=== PATIENT | female | born 1970 | race Caucasian/White ===

== ENCOUNTER → 2018-05-10 09:39 | Outpatient (CLI) | payer BC, SELFPAY ==
--- NOTE | 2018-05-10 09:43 | US_ITS ---
US transvaginal HISTORY: ITS.REASON: pelvic pain left-sided ORDERING PHYSICIAN: George Elias MD PATIENT AGE: 48 years Comparison: None FINDINGS: UTERUS: The uterus measures 5.7 x 3.8 x 5.2 cm. And is retroflexed. There is homogeneous echogenicity of the uterus.. Combined endometrial thickness is Endometrial thickness. Is 0.91 cm. RIGHT OVARY: Measures 2.6 x 1.2 x 2.4 cm with a small follicular cyst measuring 1.2 x 1.1 cm. LEFT OVARY: Measures 4.6 x 2.7 x 1.5 cm with a small follicular cysts measuring 1.2 x 1.4 x 1.1 cm. CUL-DE-SAC FLUID: No cul-de-sac fluid apparent OTHER FINDINGS: None IMPRESSION: Retroflexed uterus, small follicular cyst in each ovary is noted
--- NOTE | 2018-05-10 09:43 | MM_ITS ---
MM Dig screening mamm BI w/CAD CAD Screening ORDERING PHYSICIAN : George Elias MD PATIENT AGE: 48 years GENDER: Female COMPARISON: Previous mammograms: September 2012, February 2014, August 2011 INDICATION: 48-year-old. No hormones. No new complaints. Noncontributory family history. TECHNIQUE: Standard CC and MLO images were obtained. R2 CAD reviewed. FINDINGS: Moderately dense breast bilaterally which does somewhat decrease sensitivity mammography. No dominant mass nor suspicious calcifications either breast. Prior films show similar parenchymal pattern bilaterally with overall stable appearance. But stable Mild asymmetry CAD computer review highlights no specific areas of concern Bilateral follow-up in one year adequate . IMPRESSION: Stable bilateral mammogram with no significant new findings. Bilateral follow-up one year recommended BI-RADS Category: 2 Benign Finding(s) RECOMMENDED FOLLOW-UP: 1YR 1 YEAR FOLLOW-UP (A letter has been sent to the patient regarding results of the study.)
== END ==
PROVIDERS: Family Provider Family Medicine; PCP Family Medicine; Visit Provider Obstetrics & Gynecology
DX: Z12.31 Encounter for screening mammogram for malignant neoplasm of breast (principal); R10.2 Pelvic and perineal pain
CPT/HCPCS: 76830; 77067

== ENCOUNTER → 2019-03-07 10:39 | Outpatient (CLI) | payer BC, SELFPAY ==
[2019-03-07 11:43] LABS: Basophils % 0.5 % (0.1-2.0); Eosinophils # 0.4 K/mm3 (0.0-0.4); Eosinophils % 4.4 % (0.1-12.0); Hematocrit 43.2 % (37.0-47.0); Hemoglobin 14.3 g/dL (12.2-16.2); Lymphocytes # 2.7 K/mm3 (0.7-4.5); Lymphocytes % 30.9 % (10-50); Mean Corpuscular HGB Conc 33.2 g/dL (31.8-35.4); Mean Corpuscular Hemoglobin 30.6 pg (27.0-31.2); Mean Corpuscular Volume 92.3 fl (81-99); Mean Platelet Volume 7.2 fl (7.4-10.4); Monocytes # 0.4 K/mm3 (0.1-1.0); Monocytes % 4.4 % (1.7-9.3); Neutrophils # 5.2 K/mm3 (1.8-7.8); Neutrophils % 59.8 % (37.0-80.0); Platelet Count 350 K/mm3 (142-424); Red Blood Count 4.68 M/mm3 (4.20-5.40); Red Cell Distribution Width 13.2 % (11.5-17.5); White Blood Count 8.7 K/mm3 (4.8-10.8)
[2019-03-07 13:35] LABS: Alanine Aminotransferase 20 U/L (12-78); Albumin Level 3.8 gm/dL (3.4-5.0); Albumin/Globulin Ratio 1.1 (1.1-1.8); Alkaline Phosphatase 86 U/L (46-116); Anion Gap 12.4 mEq/L (5-15); Aspartate Amino Transferase 11 U/L (15-37); Bilirubin,Total 0.3 mg/dL (0.2-1.0); Blood Urea Nitrogen 10 mg/dL (7-18); Calcium 9.3 mg/dL (8.5-10.1); Carbon Dioxide 28 mmol/L (21.0-32.0); Chloride 103 mmol/L (98-107); Creatinine,Serum 0.84 mg/dL (0.55-1.02); Estimated Glomerular Filt Rate 72 ml/min (>60); GFR (African American) 88 ML/MIN (>60); Globulin 3.6 gm/dl (1.3-3.2); Glucose 79 mg/dL (74-106); Potassium 4.4 mmoL/L (3.5-5.1); Sodium 139 mmol/L (136-145); Total Protein,Serum 7.4 gm/dL (6.4-8.2)
[2019-03-07 16:12] LABS: HCG Qualitative, Serum Negative (Negative)
== END ==
PROVIDERS: Visit Provider Obstetrics & Gynecology
DX: R10.2 Pelvic and perineal pain (principal)
CPT/HCPCS: 36415; 80053; 84703; 85025

== ENCOUNTER → 2019-08-29 08:15 | Outpatient (CLI) | payer OTHER, SELFPAY ==
--- NOTE | 2019-08-29 08:17 | MM_ITS ---
PROCEDURE: MM DIG SCREENING MAMM BI W/CAD CLINICAL INDICATION: SCREENING There is a history of breast cancer patient's maternal cousin. COMPARISON: [facility] DIGITAL MAMM-SCREEN BILATERAL from 09/24/2012 [facility] DIG MAMM-SCREEN BITA from 02/24/2014 [facility] MM Dig screening mamm BI w/CAD from 05/10/2018 TECHNIQUE: Standard CC and MLO images were obtained. R2 CAD reviewed. FINDINGS: Moderate diffuse somewhat heterogenic fibroglandular densities are seen in both breasts somewhat lessening the sensitivity of mammography. There is stable asymmetric glandular tissue upper outer quadrant right breast. There is no suspicious lesion and no suspicious microcalcifications. IMPRESSION: Moderate breast density with no suspicious lesions seen BI-RAD Category: 1 Negative FOLLOW-UP: 1YR 1 Year Follow-up (A letter has been sent to the patient regarding results of the study.) Dictated by: Dr. Dane Mann MD 08/29/2019 13:[address] Dane Mann MD in [place] 08/29/2019 13:12
== END ==
PROVIDERS: PCP Family Medicine; Visit Provider Obstetrics & Gynecology
DX: Z12.31 Encounter for screening mammogram for malignant neoplasm of breast (principal)
CPT/HCPCS: 77067

== ENCOUNTER → 2020-08-29 11:18 | Outpatient (CLI) | payer OTHER, SELFPAY ==
[2020-08-29 13:41] LABS: Coronavirus 19 IgG Antibody Negative (Negative); Coronavirus 19 IgM Antibody Negative (Negative)
== END ==
PROVIDERS: PCP Family Medicine; Visit Provider Surgery
DX: Z01.89 Encounter for other specified special examinations (principal); Z12.11 Encounter for screening for malignant neoplasm of colon
CPT/HCPCS: 36415; 86328

== ENCOUNTER 2020-08-31 08:26 | Day surgery (SDC) | payer OTHER, SELFPAY ==
[2020-08-30 11:25] VITALS: BMI 25.7
[2020-08-31 08:40] VITALS: BP 125/75; PULSE 90; RESP 18; TEMP 36.7; O2SAT 96
--- NOTE | 2020-08-31 08:46 | HMH.ANESCL ---
[facility] Anesthesia Checklist - Patient Identification Patient Identification: Arm Band, Verbal (Name & ) - Structural Data Admitted From: Home Planned Operative Procedure/s: colon Consent for Planned Operative Procedure(s) Verified: Yes Verified Documents: History and Physical - NPO Status Verified Time NPO: 00:00 - Chart Verification Results Verified: CBC, BMP - Additional verifications Patient : No Anesthesia Reactions: No Hx Blood Transfusions: No Blood Transfusion Reaction: No Cephalosporin Allergy: No Previous Colonoscopy: No - Cardiovascular Assessment Heart Sounds: S1 & S2 Pulse Strength: Baseline Pulse Rhythm: Regular Peripheral Edema: No - Airway Assessment C-Spine Mobility Assessed: Yes TMJ Mobility Assessed: Yes Dentition: Good Dentition - Neurological Assessment Level of Consciousness: Awake, Alert, Appropriate Hx Seizures: No Numbness or tingling in extremities: No - Anesthesia Plan Anesthesia Risk discussed: Yes Anesthesia Plan: Verified ASA Class: II Anesthesia Type: MAC [facility] History I have reviewed the patient's past medical history: Yes Medical History: Reports:: Depression Denies:: Cancer, Diabetes Mellitus Type 1, Diabetes Mellitus Type 2, Internal Pacemaker, Lung Disease, MRSA, Seizures *Have you ever received a pneumonia vaccine?: No *Have you received a flu vaccine this season?: No Other Medical History: Denies: Blood Transfusion Reaction Anesthesia experience/problems:: none Other Surgeries: Yes: Colonoscopy, Tubal Ligation. No: Pacemaker Amputation: No Fractures: No - *Social History Last grade of school completed: 11th or 12th Smoking Status: Former smoker Tobacco Type: cigarettes # Packs/Day (cigarettes): 1 Alcohol Intake: never Alcohol Intake Frequency:: other Substance Use Type: denies use *Occupational Status:: employed Housing: house Household Members: significant other *Travel in the last 8 weeks: None - Psychiatric History Pschychiatric History:: Reports:: Depression Family Hx:: Hypertension, Coronary Artery Disease, Cancer
[2020-08-31 09:04] LABS: HCG Qualitative, Serum Negative (Negative)
[2020-08-31 09:29] VITALS: O2SAT 97
--- NOTE | 2020-08-31 10:19 | HMH.SCOPE ---
- Procedure: Date: 08/31/20 Patient Date of :: 1970 Procedure Performed:: Total colonoscopy with polypectomy by biopsy and snare Indications:: Patient presents for follow-up colonoscopy. I had performed initial screening colonoscopy on her 2 years ago. At that time she had numerous small polyps removed and most of these were lymphoid aggregate and hyperplastic polyps. However, she had at least 3 tubular adenomas. She does have a family history of colon cancer with her mother being diagnosed with metastatic colon cancer at the age of 65. She also has recently discovered that a paternal aunt had colon cancer. She is without complaints. Performing Provider:: Lewis Biswas MD Referring Provider:: None Sedation:: MAC sedation Procedure:: Patient was taken to endoscopy procedure room. She was positioned in lateral decubitus position. Adequate intravenous sedation was achieved with anesthesia titration of propofol. Variable stiffness Olympus colonoscope was inserted via the anus. With difficulty due to profound redundancy and floppiness of the sigmoid colon it was ultimately advanced to the cecum. Ileocecal valve and appendiceal orifice were clearly identified. There is a diminutive adenomatous appearing polyp in the cecum removed with biopsy forceps. Colonoscope was withdrawn through the colon and there is a small polyp in the sigmoid removed with biopsy forceps. In the distal sigmoid there were a couple of possibly hyperplastic appearing polyps removed with cold cutting snare. In the rectosigmoid region several hyperplastic appearing polyps were removed with combination of snare and biopsy forceps. Retroflexion revealed no evidence of any pathologic hemorrhoids. Colonoscope was withdrawn. Findings:: Diminutive cecal polyp removed with cold biopsy forceps Diminutive sigmoid polyp removed with cold biopsy forceps Possibly hyperplastic distal sigmoid polyp x2 removed with cold cutting snare Rectosigmoid polyps, likely hyperplastic, removed with combination of snare and biopsy forceps. Markedly floppy redundant sigmoid colon Recommendations:: Likely repeat colonoscopy within 3 years pending pathology Complications:: None immediately apparent Estimated blood obtained (mL): 2
[2020-08-31 10:20] VITALS: BP 110/76; PULSE 83; RESP 18; TEMP 36.1; O2SAT 97
[2020-08-31 10:30] VITALS: BP 80/51; PULSE 72; RESP 18; O2SAT 97
--- NOTE | 2020-08-31 10:49 | PC.NURSE ---
DISCHARGE INSTRUCTIONS REVIEWED AND FOLLOW UP IN PLACE.
[2020-08-31 10:55] VITALS: BP 101/76; PULSE 80; RESP 18; O2SAT 97
== END 2020-08-31 10:59 | disposition home or self-care (01) ==
LOC: OUTP 08:27
PROVIDERS: PCP Family Medicine; Visit Provider Surgery
PROC: 0DJD8ZZ Inspection of Lower Intestinal Tract, Via Natural or Artificial Opening Endoscopic (ICD-10-PCS; CPT 45385; principal; 2020-08-31 09:30)
DX: Z12.11 Encounter for screening for malignant neoplasm of colon (principal); Z86.010 Personal history of colon polyps; Z80.0 Family history of malignant neoplasm of digestive organs; K63.5 Polyp of colon; F31.9 Bipolar disorder, unspecified; Z87.891 Personal history of nicotine dependence; Z79.890 Hormone replacement therapy
CPT/HCPCS: 45385; 45380; 84703

== ENCOUNTER → 2020-12-17 14:51 | Outpatient (CLI) | payer OTHER, SELFPAY ==
--- NOTE | 2020-12-17 14:58 | XR_ITS ---
PROCEDURE: XR CHEST 2V CLINICAL HISTORY: CHEST PAIN COMPARISON: No exams were available for comparison FINDINGS: The cardiomediastinal silhouette and pulmonary vascularity are within normal limits. The lungs are clear without infiltrates, suspicious nodules, or pleural effusions. No acute bony abnormalities. IMPRESSION: No acute findings. Dictated by: Seth Damon MD 12/17/2020 16:05 Seth Damon MD in [place] 12/17/2020 16:05
== END ==
PROVIDERS: PCP Nurse Practitioner Family; Visit Provider Nurse Practitioner Family
DX: R07.1 Chest pain on breathing (principal)
CPT/HCPCS: 71046

== ENCOUNTER 2022-06-25 13:34 | Emergency (ER) | payer BC, SELFPAY ==
[2022-06-25] VITALS (8 sets, daily range): BP systolic 112–140; BP diastolic 74–91; PULSE 71–79; RESP 14–18; TEMP 36.6–36.7; O2SAT 98–100; BMI 23.2
--- NOTE | 2022-06-25 13:46 | XR_ITS ---
PROCEDURE INFORMATION: Exam: XR Right Ribs with PA Chest Exam date and time: 06/25/2022 1:48 PM Age: 52 years old Clinical indication: Other: Rib pain; Additional info: Pain with cough TECHNIQUE: Imaging protocol: Radiologic exam of the Right ribs with PA chest. Views: 3 views COMPARISON: CR XR CHEST 2V 12/17/2020 3:16 PM FINDINGS: Airway: Central airways patent. Lungs: Normal lungs. Pleural spaces: Normal pleura. Heart/Mediastinum: Normal cardiomediastinal silhouette. Bones/joints: No acute skeletal abnormality or aggressive osseous lesion. IMPRESSION: No acute thoracic or skeletal pathology.
--- NOTE | 2022-06-25 13:46 | PC.NURSE ---
PT TO XR AT THIS TIME
--- NOTE | 2022-06-25 13:50 | INFXCTL.NOTE ---
1350 RETURNED FROM XR
--- NOTE | 2022-06-25 14:10 | PC.NURSE ---
1410, PT SITTING ON SIDE OF BED, NO NEEDS AT THIS TIME
--- NOTE | 2022-06-25 14:44 | PC.NURSE ---
ROUNDED ON PT AT THIS TIME, UPDATED ON POC. NO NEEDS AT THIS TIME
--- NOTE | 2022-06-25 15:33 | PC.NURSE ---
ED MD AT BEDSIDE TO EVALUATE PT
--- NOTE | 2022-06-25 15:39 | PC.NURSE ---
EDMD AT BEDSIDE WITH U/S
--- NOTE | 2022-06-25 16:10 | PC.NURSE ---
1610 PT GIVEN INCENTIVE SPIROMETER WITH PROPER USAGE
--- NOTE | 2022-06-25 16:22 | HMH.EDGENADL ---
ED Disposition Clinical Impression: Musculoskeletal back pain Disposition: Home, Self-Care Condition on Discharge: Good Additional Instructions: Please follow-up with your primary care physician for back pain seen in the emergency department that is likely musculoskeletal pain. Please use incentive spirometer every 2 hours with goal of at least 1500 to 2000 cc until you follow-up with your primary care physician. Return to the emergency department with any new or worsening symptoms including persistent or worsening pain, fevers, shortness of breath, chest pain, fainting or any other new or concerning symptoms. There is no evidence that was obvious of gallbladder issues on ultrasound performed in the emergency department. If you continue to have this pain, your primary care physician may recommend outpatient ultrasound to further evaluate this. Prescriptions: Cyclobenzaprine HCl [Cyclobenzaprine 10mg Tab*] 10 mg PO DAILY 5 Days #5 tab Transmission Status: Pending to [id number] Referrals: Roberto Becerra MD [Primary Care Provider] - - Critical Care Critical Care Time: No Attestation: On 06/25/22, the high probability of a clinically significant, sudden or life threatening deterioration of the following system(s) required my full and direct attention, intervention and personal management. The time I documented below is in addition to time spent performing reported procedures but includes the following listed in this critical care notation. Medical Decision Making - Sukumar Inquiry Pt receiving controlled substance: No Vital Signs: 06/25/22 13:35 06/25/22 13:55 06/25/22 14:35 Temperature 98.1 F Temperature Source Oral Pulse Rate 79 Pulse Rate [Radial] 73 Respiratory Rate 18 Blood Pressure 120/77 126/91 H Blood Pressure [Right Arm] 120/77 Blood Pressure Mean 106 Blood Pressure Mean [Right Arm] 91 Blood Pressure Source [Right Arm] Automatic Cuff Blood Pressure Position [Right Arm] Sitting 02 Sat by Pulse Oximetry 100 98 Oxygen Delivery Method Room Air 06/25/22 15:00 06/25/22 15:30 06/25/22 15:45 Temperature Temperature Source Pulse Rate 71 72 79 Pulse Rate [Radial] Respiratory Rate 14 Blood Pressure 112/79 130/84 130/84 Blood Pressure [Right Arm] Blood Pressure Mean 90 99 Blood Pressure Mean [Right Arm] Blood Pressure Source [Right Arm] Blood Pressure Position [Right Arm] 02 Sat by Pulse Oximetry 98 99 98 Oxygen Delivery Method Medical Decision Narrative: 52-year-old female presents emergency department with 2 weeks of R sided pain that is in the right upper quadrant and back per patient, with no right upper quadrant tenderness, no rigidity or guarding on physical examination. Patient has some posterior right rib tenderness around rib 9, likely musculoskeletal injury causing patient's pain. [id number] ultrasound performed did not show any obvious cholecystitis or Cholelithiasis, with patient not having colicky pain or pain worse with food or tenderness. Patient was given incentive spirometer and able to gizzard puller 2000 cc, with patient given prescription for Flexeril and instructed to take ibuprofen and Tylenol for likely musculoskeletal pain. Patient given return precautions for the emergency department. Patient hemodynamically stable satting appropriately on room air here today. Patient instructed to follow-up with her primary care physician for this pain, with patient amenable to plan. General Adult HPI - General Chief complaint: PAIN Stated complaint: rib pain, no accident Time Seen by Provider: 06/25/22 15:30 Mode of Arrival: Ambulatory Limitations: No Limitations Description of Symptoms (Recalled from ER Triage Doc. by RN): RIGHT SIDED RIB AND BACK PAIN, PT REPORTS PAIN AND COUGH X 2 WEEKS. NO INJURY - History of Present Illness HPI narrative: 52-year-old female presents emergency department with 2-week history of right upper q
== END 2022-06-25 16:36 | disposition home or self-care (01) ==
PROVIDERS: Emergency Provider Student in an Organized Health Care Education/Training Program; PCP Family Medicine
DX: R10.11 Right upper quadrant pain (principal); M54.9 Dorsalgia, unspecified
CPT/HCPCS: 71101; 99283

== ENCOUNTER → 2022-08-24 11:44 | Outpatient (CLI) | payer BC, SELFPAY ==
--- NOTE | 2022-08-24 11:52 | MM_ITS ---
PROCEDURE INFORMATION: Exam: MG Bilateral Screening 3D Mammography Exam date and time: 08/24/2022 11:42 AM Age: 52 years old Clinical indication: Screening examination TECHNIQUE: Imaging protocol: Bilateral Screening tomosynthesis and 2D mammography including computer-aided detection (CAD) when performed. COMPARISON: 1. MG MM DIG SCREENING MAMM BI W/CAD 08/29/2019 8:29 AM 2. MG [facility] MM Dig screening mamm BI w/CAD 05/10/2018 10:45 AM FINDINGS: MAMMOGRAPHY: Breast composition: There are scattered areas of fibroglandular density. Mass: None. Architectural distortion: None. Calcifications: No suspicious calcifications. Asymmetric density: None. Skin thickening: None. Axillary adenopathy: None. IMPRESSION: No mammographic evidence of malignancy. Annual screening is recommended unless otherwise clinically indicated. ASSESSMENT: BI-RADS Category 1: Negative
== END ==
PROVIDERS: PCP Family Medicine; Visit Provider Obstetrics & Gynecology
DX: Z12.31 Encounter for screening mammogram for malignant neoplasm of breast (principal)
CPT/HCPCS: 77063; 77067

== ENCOUNTER → 2023-08-18 10:10 | Outpatient (CLI) | payer BC, SELFPAY ==
[2023-08-18 10:47] LABS: Basophils # 0.1 K/mm3 (0-0.2); Basophils % 0.9 % (0.1-2.0); Eosinophils # 0.4 K/mm3 (0.0-0.4); Eosinophils % 4.3 % (0.1-12.0); Hematocrit 48.6 % (37.0-47.0); Hemoglobin 15.6 g/dL (12.2-16.2); Lymphocytes # 2.6 K/mm3 (0.7-4.5); Lymphocytes % 30.8 % (10-50); Mean Corpuscular HGB Conc 32.2 g/dL (31.8-35.4); Mean Corpuscular Hemoglobin 29.8 pg (27.0-31.2); Mean Corpuscular Volume 92.7 fl (81-99); Mean Platelet Volume 8.5 fl (7.4-10.4); Monocytes # 0.4 K/mm3 (0.1-1.0); Monocytes % 4.2 % (1.7-9.3); Neutrophils # 5.1 K/mm3 (1.8-7.8); Neutrophils % 59.9 % (37.0-80.0); Platelet Count 329 K/mm3 (142-424); Red Blood Count 5.24 M/mm3 (4.20-5.40); Red Cell Distribution Width 13.7 % (11.5-17.5); White Blood Count 8.6 K/mm3 (4.8-10.8)
[2023-08-18 11:02] LABS: Alanine Aminotransferase 16 U/L (12-78); Albumin Level 4.4 g/dl (3.5-5.0); Albumin/Globulin Ratio 1.5 (1.1-1.8); Alkaline Phosphatase 130 U/L (38-126); Anion Gap 11.8 mEq/L (5-15); Aspartate Amino Transferase 23 U/L (14-36); Bilirubin,Total 0.5 mg/dl (0.2-1.3); Blood Urea Nitrogen 12 mg/dl (7-17); Calcium 9.7 mg/dl (8.4-10.2); Carbon Dioxide 29 mmol/L (22.0-30.0); Chloride 108 mmol/L (98-107); Cholesterol 229 mg/dl (140-200); Estimated Glomerular Filt Rate 88 ml/min (>60); GFR (African American) 106 ML/MIN (>60); Glucose 101 mg/dl (74-100); HDL Cholesterol 38 mg/dl (40-60); Potassium 4.8 mmoL/L (3.5-5.1); Sodium 144 mmol/L (136-145); Total Protein,Serum 7.4 g/dl (6.3-8.2); Triglycerides 170 mg/dl (30-150); VLDL Cholesterol 34 mg/dL (0-40)
[2023-08-18 11:13] LABS: Direct LDL Cholesterol 143.28 mg/dL (100-129)
[2023-08-19 08:50] LABS: FSH 65.4 mIU/mL (.); LH 61.8 mIU/mL (.)
== END ==
PROVIDERS: PCP Family Medicine; Visit Provider Nurse Practitioner Obstetrics & Gynecology
DX: Z01.419 Encounter for gynecological examination (general) (routine) without abnormal findings (principal)
CPT/HCPCS: 36415; 80053; 80061; 83001; 83002; 85025

== ENCOUNTER → 2023-08-28 12:35 | Outpatient (CLI) | payer BC, SELFPAY ==
--- NOTE | 2023-08-28 12:35 | MM_ITS ---
PROCEDURE INFORMATION: Exam: MG Bilateral Screening 3D Mammography Exam date and time: 08/28/2023 12:53 PM Age: 53 years old Clinical indication: Screening mammogram. Family history of breast cancer other: Maternal cousin; TECHNIQUE: Imaging protocol: Bilateral Screening tomosynthesis and 2D mammography including computer-aided detection (CAD) when performed. COMPARISON: 1. MG MM DIG SCREENING MAMM BI W/CAD 08/24/2022 11:42 AM 2. MG MM DIG SCREENING MAMM BI W/CAD 08/29/2019 8:29 AM 3. MG [facility] MM Dig screening mamm BI w/CAD 05/10/2018 10:45 AM 4. MG [facility] DIG MAMM-SCREEN BITA 02/24/2014 5:01 PM FINDINGS: MAMMOGRAPHY: Breast composition: There are scattered areas of fibroglandular density. Mass: None. Architectural distortion: No new or suspicious architectural distortion. Calcifications: No new or suspicious calcifications are present Asymmetric density: No new or suspicious asymmetric density is present Skin thickening: None. Axillary adenopathy: None. IMPRESSION: No mammographic evidence of malignancy. Recommend annual screening mammography unless otherwise clinically indicated. ASSESSMENT: BI-RADS category 1: Negative
--- NOTE | 2023-08-28 12:35 | US_ITS ---
PROCEDURE: US TRANSVAGINAL CLINICAL INDICATION: post menopausal bleeding COMPARISON: No exams were available for comparison FINDINGS: Transabdominal sonographic images of the pelvis were obtained. UTERUS: Retroverted and retroflexed measuring 5.4 cm x 3.6 cmx 3.0 cm with a combined endometrial thickness of 8.4mm. LEFT OVARY: 2.0 cmx0.9 cmx0.8cm with a volume of 0.8ml. Appears atrophic. RIGHT OVARY: 1.5 cmx 1.0 cmx 0.7 cm with a volume of 0.6ml. Appears atrophic. Both ovaries are seen and appear normal. Doppler flow to both ovaries are seen. There is no fluid in the cul-de-sac. IMPRESSION: 1. Retroverted, retroflexed small uterus. 2. The endometrium on some of the views appears thickened at 8.4 mm. Cannot rule out a small polyp. 3. Both ovaries are seen and appear atrophic. 4. No fluid in the cul-de-sac. Dictated by: Chidi Castrejon MD 08/28/2023 17:12 Chidi Castrejon MD in [place] 08/28/2023 17:12
== END ==
LOC: RAD 12:35
PROVIDERS: PCP Family Medicine; Visit Provider Nurse Practitioner Obstetrics & Gynecology
DX: Z12.31 Encounter for screening mammogram for malignant neoplasm of breast (principal); N95.0 Postmenopausal bleeding
CPT/HCPCS: 76830; 77063; 77067

== ENCOUNTER → 2023-09-07 15:07 | Outpatient (CLI) | payer BC, SELFPAY ==
--- NOTE | 2023-09-07 15:14 | CT_ITS ---
FINAL REPORT TECHNIQUE: Axial images were obtained from the lung apex to the mid abdomen by computed tomography. This study was performed with techniques to keep radiation doses as low as reasonably achievable (ALARA). Individualized dose reduction techniques using automated exposure control or adjustment of mA and/or kV according to the patient's size were employed. CLINICAL HISTORY: H/O TOBACCO USE smoker, .5 ppd x 30 years FINDINGS: CHEST CT LOW DOSE CTDI vol (mGy): 2.90 DLP (mGy-cm): 101.60 There is no axillary adenopathy. There are multiple borderline mediastinal nodes which are nonspecific, favor reactive. The heart is normal in size. There is no pericardial or pleural effusion. There is mild scarring. Multiple small nodules are identified, largest in the left lower lobe measures 4 mm is well seen on image 49. There are several calcified granulomas. Limited images of the upper abdomen are unremarkable. IMPRESSION: Multiple small nodules. Lung RADS category 2. Recommend 12 month follow-up low-dose chest CT. Reviewed, Interpreted and Dictated by Lewis Nugent III, MD Transcribed by Flora Riley Authenticated and [facility]
== END ==
PROVIDERS: PCP Family Medicine; Visit Provider Family Medicine
DX: Z87.891 Personal history of nicotine dependence (principal); Z12.2 Encounter for screening for malignant neoplasm of respiratory organs
CPT/HCPCS: 71271

== ENCOUNTER → 2023-10-03 16:24 | Outpatient (CLI) | payer BC, SELFPAY ==
[2023-10-03 16:44] LABS: Basophils # 0.1 K/mm3 (0-0.2); Basophils % 0.8 % (0.1-2.0); Eosinophils # 0.4 K/mm3 (0.0-0.4); Eosinophils % 4.7 % (0.1-12.0); Hematocrit 42.7 % (37.0-47.0); Lymphocytes # 4.3 K/mm3 (0.7-4.5); Lymphocytes % 45.1 % (10-50); Mean Corpuscular HGB Conc 35.1 g/dL (31.8-35.4); Mean Corpuscular Volume 91.2 fl (81-99); Mean Platelet Volume 8.1 fl (7.4-10.4); Monocytes # 0.4 K/mm3 (0.1-1.0); Monocytes % 4.1 % (1.7-9.3); Neutrophils # 4.3 K/mm3 (1.8-7.8); Neutrophils % 45.3 % (37.0-80.0); Platelet Count 292 K/mm3 (142-424); Red Blood Count 4.69 M/mm3 (4.20-5.40); Red Cell Distribution Width 13.4 % (11.5-17.5); White Blood Count 9.5 K/mm3 (4.8-10.8)
[2023-10-03 17:09] LABS: Alanine Aminotransferase 14 U/L (12-78); Albumin Level 4.5 g/dl (3.5-5.0); Albumin/Globulin Ratio 1.6 (1.1-1.8); Alkaline Phosphatase 114 U/L (38-126); Anion Gap 13.6 mEq/L (5-15); Aspartate Amino Transferase 23 U/L (14-36); Bilirubin,Total 0.2 mg/dl (0.2-1.3); Blood Urea Nitrogen 10 mg/dl (7-17); Calcium 9.7 mg/dl (8.4-10.2); Carbon Dioxide 29 mmol/L (22.0-30.0); Chloride 102 mmol/L (98-107); Estimated Glomerular Filt Rate 75 ml/min (>60); GFR (African American) 91 ML/MIN (>60); Globulin 2.9 g/dL (1.3-3.2); Glucose 96 mg/dl (74-100); Potassium 4.6 mmoL/L (3.5-5.1); Sodium 140 mmol/L (136-145); Total Protein,Serum 7.4 g/dl (6.3-8.2)
[2023-10-03 17:30] LABS: HCG,Quantitative < 2 mIU/ml (0-5.42)
== END ==
PROVIDERS: PCP Family Medicine; Visit Provider Nurse Practitioner Obstetrics & Gynecology
DX: N95.1 Menopausal and female climacteric states (principal)
CPT/HCPCS: 80053; 84702; 85025

== ENCOUNTER 2023-10-10 06:01 | Day surgery (SDC) | payer BC, SELFPAY ==
[2023-10-08 15:42] VITALS: BMI 23.7
[2023-10-10 06:15] VITALS: BP 123/73; PULSE 96; RESP 18; TEMP 36.7; O2SAT 97
--- NOTE | 2023-10-10 07:06 | EXP.ANES.CKL ---
[facility] Disclaimer: The information contained in this section may have been updated after the patient was seen, as this information can be updated by other users. 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 current occupational exposures/hazards: No caffeine: Yes [facility] Anesthesia Checklist Patient Identification Patient Identification: Arm Band and Verbal (Name & ) Structural Data Admitted From: Home Planned Operative Procedure/s: Hyst/D &C/Myosure Consent for Planned Operative Procedure(s) Verified: Yes NPO Status Verified Time NPO: 00:00 Additional verifications Anesthesia Reactions: No Hx Blood Transfusions: No Blood Transfusion Reaction: No Airway Assessment Mallampati Score:: Class I C-Spine Mobility Assessed: Yes TMJ Mobility Assessed: Yes Dentition: Good Dentition Neurological Assessment Level of Consciousness: Awake Numbness or tingling in extremities: No Anesthesia Plan Anesthesia Risk discussed: Yes Anesthesia Plan: Verified ASA Class: II Anesthesia Type: MAC
[2023-10-10 07:58] VITALS: BP 96/59; PULSE 93; RESP 14; TEMP 36.2; O2SAT 94
--- NOTE | 2023-10-10 08:00 | EXP.OP.NOTE ---
Date of procedure: 10/10/23 Pre-op Diagnosis:: Postmenopausal bleeding Post-op Diagnosis:: Postmenopausal bleeding Procedure performed:: Hysteroscopy D&C. Surgeon:: Chidi Castrejon MD [employer]ESSING SUPERVISOR:: Meg Cole Anesthesia: MAC Estimated blood loss (mL): 25 Clinical Note:: She is a 53-year-old lady who had some postmenopausal bleeding. Ultrasound showed a slightly thickened endometrium at 8 mm. As result of that she was offered hysteroscopy D&C. The ultrasound was suggestive of a polyp. Operative findings:: She had a very thin looking atrophic endometrium. Both tubal ostia were seen. There was no evidence of any polyps. Operative note:: She was taken the operating room where MAC anesthesia was found to be adequate. She was prepped draped normal sterile fashion lithotomy position. The anterior lip of the cervix was grasped with a tenaculum and Toney dilators were used to dilate the cervix to approximately 6 mm. Then using a small MyoSure scope I entered the uterine cavity. The findings were as previously dictated. I then performed a gentle curettage. I then injected approximately 30 cc of 0.25% ropivacaine at the 3:00, 5:00, 7:00, and 9:00 positions of the cervix. She tolerated procedure well and was taken the recovery room in excellent condition. All sponge, instrument counts were correct. Estimated blood loss was less than 25 cc. Condition: stable Disposition: PACU Specimens:: Endometrial curette Complications:: None
[2023-10-10 08:08] VITALS: BP 91/57; PULSE 97; RESP 16; O2SAT 94
[2023-10-10 08:18] VITALS: BP 114/80; PULSE 93; RESP 16; O2SAT 95
[2023-10-10 08:28] VITALS: BP 112/73; PULSE 86; RESP 16; O2SAT 97
== END 2023-10-10 08:55 | disposition home or self-care (01) ==
PROVIDERS: PCP Family Medicine; Visit Provider Nurse Practitioner Obstetrics & Gynecology
PROC: (CPT 58558; principal; 2023-10-10 07:30)
DX: N95.0 Postmenopausal bleeding (principal); N85.00 Endometrial hyperplasia, unspecified
CPT/HCPCS: 58558; 96374; J2405

== ENCOUNTER 2023-11-09 10:20 | Day surgery (SDC) | payer BC, SELFPAY ==
[2023-11-07 10:42] VITALS: BMI 23.7
[2023-11-09 10:35] VITALS: BP 133/80; PULSE 95; RESP 18; TEMP 36.7; O2SAT 98
[2023-11-09] MEDS: LACTATED RINGERS 1000ML 1,000 ML 25 ML IV (10:35)
--- NOTE | 2023-11-09 10:45 | P.PCN_ITS ---
Procedure: Date: 11/09/23 Patient Date of :: 1970 Procedure Performed:: Total colonoscopy to terminal ileum with polypectomy using snare and biopsy forceps Indications:: Patient is a 53-year-old female with family history of colon cancer in her mother at age 65 and paternal aunt. I did a screening colonoscopy on her in 2018 at which time she had 3 tubular adenomas as well as some benign polyps. Colonoscopy on 08/31/2020 revealed a single tubular adenoma with multiple hyperplastic polyps. Given family history and precancerous adenomatous polyps recommended 3-year follow-up colonoscopy. Performing Provider:: Lewis Biswas MD Referring Provider:: Roberto Becerra MD Sedation:: MAC sedation Procedure:: Patient history was obtained and appropriate physical examination was performed. Patient's medications and allergies were reviewed. Informed consent was obtained after explaining the benefits, alternatives, and risks of the procedure including, but not limited to, bleeding, perforation, missed lesions, and adverse reaction to anesthesia medications. Patient was transported to endoscopy procedure room. Patient was connected to monitoring devices. Throughout the procedure the patient's blood pressure, pulse, and oxygen saturations were monitored continuously. Patient identification and planned procedure were verified by the staff. Patient was positioned in lateral decubitus position. Digital anorectal exam was performed. Variable stiffness Olympus colonoscope was inserted and advanced under direct visualization to the cecum. Adequacy of the colonic preparation was noted. The colonoscope was advanced a short distance into the terminal ileum. The colonoscope was then slowly withdrawn while carefully examining the color, texture, anatomy, and integrity of the mucosoa ci rcumferentially. Within the rectum retroflexion was performed. Colonoscope was then withdrawn. . 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 There were rare diverticuli. There were numerous hyperplastic appearing rectosigmoid polyps. 3 of these were removed with cold snare that were somewhat larger and numerous were sampled with cold biopsy forceps. Some of these appeared to have pigmentation consistent with melanosis coli. . 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 If all hyperplastic likely 5 years. Complications:: None immediately apparent Estimated blood obtained (mL): 3 Colonoscopy Component Colonoscopy Component Was a colonoscopy performed during today's procedure?: Yes Recommended follow up colonoscopy of at least 10 years?: No If no, follow up colonoscopy recommended in ___ years?: Unknown Reason for not recommending >/= 10 yr follow-up interval?: See above
--- NOTE | 2023-11-09 10:45 | EXP.ANES.CKL ---
[facility] Disclaimer: The information contained in this section may have been updated after the patient was seen, as this information can be updated by other users. 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 current occupational exposures/hazards: No caffeine: Yes [facility] Anesthesia Checklist Patient Identification Patient Identification: Arm Band and Verbal (Name & ) Structural Data Admitted From: Home Planned Operative Procedure/s: Colonoscopy Consent for Planned Operative Procedure(s) Verified: Yes NPO Status Verified Time NPO: 00:00 Additional verifications Anesthesia Reactions: No Hx Blood Transfusions: No Blood Transfusion Reaction: No Airway Assessment Mallampati Score:: Class II C-Spine Mobility Assessed: Yes TMJ Mobility Assessed: Yes Dentition: Good Dentition Neurological Assessment Level of Consciousness: Awake Hx Seizures: No Numbness or tingling in extremities: No Anesthesia Plan Anesthesia Risk discussed: Yes Anesthesia Plan: Verified ASA Class: II Anesthesia Type: MAC
[2023-11-09 10:53] VITALS: O2SAT 99
[2023-11-09 11:30] VITALS: BP 96/61; PULSE 94; RESP 16; TEMP 36.2; O2SAT 96
[2023-11-09 11:40] VITALS: BP 94/62; PULSE 90; RESP 16; O2SAT 96
[2023-11-09 11:50] VITALS: BP 100/70; PULSE 85; RESP 18; O2SAT 97
[2023-11-09 12:00] VITALS: BP 112/75; PULSE 89; RESP 18; O2SAT 98
== END 2023-11-09 12:10 | disposition home or self-care (01) ==
PROVIDERS: PCP Family Medicine; Visit Provider Surgery
PROC: 0DJD8ZZ Inspection of Lower Intestinal Tract, Via Natural or Artificial Opening Endoscopic (ICD-10-PCS; CPT 45385; principal; 2023-11-09 12:30)
DX: Z12.11 Encounter for screening for malignant neoplasm of colon (principal); Z86.010 Personal history of colon polyps; Z80.0 Family history of malignant neoplasm of digestive organs; K63.5 Polyp of colon
CPT/HCPCS: 45385; 45380; J2704

== ENCOUNTER 2025-07-15 12:26 | Outpatient (CLI) | payer OTHER, SELFPAY ==
--- OUTSIDE RECORDS SUMMARY | 2024-03-15 06:30 | XMS_ITS ---
Author Organization [facility] Address [address] [place] [id number] Care Team Providers Care Accountancy Professor Name Role Phone Melania Leonard Primary Care Provider [phone] Roberto Becerra Unavailable [phone] Results Component Value Reference Range Notes P-Lipid Panel Reviewed date:03/17/2024 11:08:37 AM Interpretation:chol 209, chol/hdl 5.22, non-hdl 169, ldl 143, ldl/hdl 3.6 Performing Lab: Notes/Report: Test performed by [facility], [address] , [address], [place] [address] Swapnil Cruz MD, Collection Specialist CLIA: [id number] Cholesterol 209 <200 mg/dL Triglycerides 129 <150 [...] Active Encounters Encounter Location Date Provider Diagnosis [facility] [address] [facility] [address] [place] [id number] 03/15/2024 Roberto Becerra Mixed hyperlipidemia E78.2 Assessments Encounter Date Diagnosis (ICD Code) Assessment Notes Treatment Notes Treatment Clinical Notes Section Notes 03/15/2024 Mixed hyperlipidemia (ICD-10 - E78.2) Plan Of Treatment Next Appt Details Provider Name:Roberto Her , 07/15/2025 11:30:00 AM, [address] [facility], [address], [place], [phone], Progress Notes * Cody FAJARDOOB:[birth year] (55 yo F)Acc No.[id number]:03/15/2024 Patient: Dann SERRANOAllison DAVIS Provider: Jerrod Becerra M.D. :1970 A ge:54 Y S ex:Female Date:03/15/2024 Address:[address] [place] [address] , [id number] Pcp:Melania Leonard Subjective: * Chief Complaints: * [...] Electronic signature of Carolina Becerra MD on 07/15/2025 at 12:28 PM EDT Sign off status: Pending * Provider: Jerrod Becerra M.D. Date: 0 03/15/2024 Generated for Tyrese kurtz/Rosalba/Caitlynitting on: 0 07/15/2025 12:28 PM EDT
--- OUTSIDE RECORDS SUMMARY | 2024-12-22 11:00 | XMS_ITS ---
Author Organization [facility] Address [address] [place] [phone] Care Team Providers Care Credit Professional Name Role Phone Melania Leonard Primary Care Provider [phone] Roberto Becerra Unavailable [phone] Allergies No Known Allergies Results Component Value [...] 12/22/2024 Encounters Encounter Location Date Provider Diagnosis [facility] [address] [place] [phone] 12/22/2024 Roberto Becerra COVID-19 U07.1 Assessments Encounter [...] Next Appt Details Follow Up: prn, Reason: Provider Name:Roberto Her ry, 07/15/2025 11:30:00 AM, [address], [address], [place], [place], [phone], Progress Notes * Cody FAJARDOOB:[birth year] (55 yo F)Acc No.[id number]:12/22/2024 Progress Notes Patient: Allison PRIETO Provider: Jerrod Becerra M.D. :1970 A ge:54 Y S ex:Female Date:12/22/2024 Address:[address] [place] [address] , [id number] Pcp:Melania Leonard Subjective: * Chief Complaints: * [...] auscultation bilaterally. Assessment: * Assessment: 1. C [place]-19 - U07.1 (Primary) Plan: * Treatment: Value [...] Flu Test- Nasal Swab, Modifiers: QW , 28107 COVID TEST IN HOUSE, Modifiers: QW * Follow Up: p rn * Images: Billing Information: * Visit Code: 80555 Office Visit, Est Pt., Level 3. * Procedure Codes: 31306 Flu Test- Nasal Swab. Modifiers: QW 15440 COVID TEST IN HOUSE. Modifiers: QW * Electronic signature of Carolina Becerra MD on 07/15/2025 at 12:28 PM EDT Sign off status: Pending * Provider: Jerrod Becerra M.D. Date: 0 12/22/2024 Generated for Tyrese kurtz/Rosalba/Jackson on: 0 07/15/2025 12:28 PM EDT History and Physical Notes * [...]
--- OUTSIDE RECORDS SUMMARY | 2025-07-15 12:28 | XMS_ITS | Patient Health Record ---
Author Organization [facility] Address [address] [place] [id number] Care Team Providers Care Director Mobile Name Role Phone Melania Leonard Primary Care Provider [phone] Roberto Becerra Unavailable [phone] Allergies No Known Allergies Results Component Value Reference Range Notes Influenza Screen (in house) Reviewed date:12/22/2024 03:45:45 PM Interpretation: Performing Lab: Notes/Report: results Neg Covid test (in house) Reviewed date:12/22/2024 03:46:08 PM Interpretation: Performing Lab: Notes/Report: Result: Pos Reason For Referral No Information Medications Medication SIG (Take, Route, Frequency, Duration) Notes Start Date End Date Status Promethazine-DM 6.25-15 MG/5ML 5 mL as needed Orally every 6 hrs 07/15/2025 Active Problems Problem Type SNOMED Code ICD Code Onset Dates Problem Status W/U Status Risk Notes Problem Sinusitis (47325239) Sinusitis (J32.9) Active c onfirmed Problem Vitamin D deficiency (56843607) Vitamin D deficiency (E55.9) Active confirmed Problem Hypertriglyceridemia (807888358) Hypertriglyceridemia (E78.1) Active confirmed Problem Tobacco user (590514912) Smoking addiction (F17.200) Active confirmed Problem Mixed hyperlipidemia (104110777) Mixed hyperlipidemia (E78.2) Active confirmed Problem Tobacco user (468207177) Cigarette nicotine dependence without complication (F17.210) Active confirmed Problem Recurrent major depression (50582307) Episode of recurrent major depressive disorder, unspecified depression episode severity (F33.9) Active confirmed Vital Signs Heart Rate 88 /min 07/15/2025 Blood pressure diastolic 78 mm Hg 07/15/2025 Height 65 in 07/15/2025 Blood pressure systolic 128 mm Hg 07/15/2025 Weight 142.4 lbs 07/15/2025 BMI 23.69 kg/m2 07/15/2025 Encounters Encounter Location Date Provider Diagnosis [facility] [address] [facility] [address] [facility] [address] [place] [id number] 12/22/2024 Roberto Becerra COVID-19 U07.1 [facility] [address] [facility] [address] [facility] [address] [place] [phone] 07/15/2025 Roberto Mariam Right-sided chest pa in R07.9 ; Chronic cough R05.3 ; Mixed hyperlipidemia E78.2 and Vitamin D deficiency E55.9 Assessments Encounter Date Diagnosis (ICD Code) Assessment Notes Treatment Notes Treatment Clinical Notes Section Notes 12/22/2024 COVID-19 (ICD-10 - U07.1) 07/15/2025 Right-sided chest pain (ICD-10 - R07.9) 07/15/2025 Chronic cough (ICD-10 - R05.3) 07/15/2025 Mixed hyperlipidemia (ICD-10 - E78.2) 07/15/2025 Vitamin D deficiency (ICD-10 - E55.9) Plan Of Treatment Pending Test Test Name Order Date CXR 07/15/2025 CBC Venipuncture (in house) 07/15/2025 P-Comprehensive Metabolic Panel (CMP) P-Lipid Panel 07/15/2025 P-TSH reflex to FT4 07/15/2025 P-Vitamin D 25-Hydroxy 07/15/2025 Next Appt Details Provider Name:Roberto Her ry, 07/15/2025 11:30:00 AM, [address] [facility] 36 [facility], [address], [place], [id number], Insurance Providers Payer Name Payer Address Payer Phone Subscriber Number Group Number Insured Name Patient Relationship to Insured Coverage Start Date Coverage End Date [facility] [address] [address] [place] [phone] [id number] Allison Zamarripa Self - patient is the insured Medical (General) History Medical History History ICD Code 20 pack year smoking history as of 2022 Colon Polyps Depression Surgical History Surgery Date(Month/Year) Colonoscopy - Numerous
--- NOTE | 2025-07-15 12:34 | XR_ITS ---
FINAL REPORT CLINICAL HISTORY: RT-SIDE CHEST PAIN COMPARISON: 12/17/2020 FINDINGS: 2 views of the chest were obtained . The heart is normal in size. The mediastinum is within normal limits. The lungs are clear. There is no pneumothorax. Osseous structures are unremarkable. IMPRESSION: No acute cardiopulmonary process. Reviewed, Interpreted and Dictated by Carmen Glover MD Transcribed by Audrey Bustillos Authenticated and [facility]
== END 2025-07-15 23:59 | disposition home or self-care (01) ==
PROVIDERS: PCP Family Medicine; Visit Provider Family Medicine
DX: R07.9 Chest pain, unspecified (principal)
CPT/HCPCS: 71046

== ENCOUNTER 2025-08-21 14:56 | Outpatient (CLI) | payer OTHER, SELFPAY ==
--- OUTSIDE RECORDS SUMMARY | 2024-03-15 06:30 | XMS_ITS ---
Author Organization [facility] Address [address] [place] [id number] Care Team Providers Care Executive Secretary Name Role Phone Melania Leonard Primary Care Provider [phone] Roberto Becerra Unavailable [phone] Results Component Value Reference Range Notes P-Lipid Panel Reviewed date:03/17/2024 11:08:37 AM Interpretation:chol 209, chol/hdl 5.22, non-hdl 169, ldl 143, ldl/hdl 3.6 Performing Lab: Notes/Report: Test performed by [facility], [address] , [address], [place] [address] Swapnil Cruz MD, Supervisor [facility] CLIA: [id number] Cholesterol 209 <200 mg/dL Triglycerides 129 <150 mg/dL HDL Cholesterol 40 >39 mg/dL Cholesterol / HDL Ratio 5.22 0.00-4.44 Ratio Non-HDL Cholesterol 169 <130 mg/dL LDL Cholesterol (Calculation) 143 <130 mg/dL LDL Cholesterol Levels* Less than 100 mg/dL Optimal 100 to 129 mg/dL Near Optimal/ Above Optimal 130 to 159 mg/dL Borderline High 160 to 189 mg/dL High 190 mg/dL and above Very High * Categories as recommended by the 2004 ATPIII guidelines LDL/HDL Ratio 3.6 <3.3 Ratio LDL Cholesterol Patient History Test Date: 03/15/2024 LDL Results: 143 Units: mg/dL % Change: - REASON FOR VISIT Labs Only Medications Medication SIG (Take, Route, Frequency, Duration) Notes Start Date End Date Status Osteo Bi-Flex Triple Strength - as directed Orally 03/03/2024 Active Encounters Encounter Location Date Provider Diagnosis [facility] [address] [place], [place] [id number] 03/15/2024 Roberto Becerra Mixed hyperlipidemia E78.2 Assessments Encounter Date Diagnosis (ICD Code) Assessment Notes Treatment Notes Treatment Clinical Notes Section Notes 03/15/2024 Mixed hyperlipidemia (ICD-10 - E78.2) Plan Of Treatment No Information Progress Notes * Cody FAJARDOOB:[birth year] (55 yo F)Acc No.[id number]:03/15/2024 Patient: Allison PRIETO Provider: Jerrod Becerra M.D. :1970 A ge:54 Y S ex:Female Date:03/15/2024 Address:[address] [place] [address] , [id number] Pcp:Melania Leonard Subjective: * Chief Complaints: * 1 . Labs Only. * Medical History: * Medications: T aking Osteo Bi-Flex Triple Strength - Tablet as directed Orally , Medication List reviewed and reconciled with the patient Objective: * Vitals: Assessment: * Assessment: 1. M ixed hyperlipidemia - E78.2 Plan: * Treatment: Value Reference Range C holesterol / HDL Ratio 5.22 H 0.00-4.44 - Ratio * C holesterol 209 H <200 - mg/dL * H DL Cholesterol 40 >39 - mg/dL * L DL Cholesterol (Calculation) 143 H <130 - mg/d L * L DL/HDL Ratio 3.6 H <3.3 - Ratio * N on-HDL Cholesterol 169 H <130 - mg/dL * T riglycerides 129 <150 - mg/dL * Janneth Conklin 03/17/2024 11:0 6:43 AM >See phone encounter * Images: Billing Information: * Visit Code: * Procedure Codes: * Electronic signature of Carolina Becerra MD on 08/21/2025 at 02:59 PM EDT Sign off status: Pending * Provider: Jerrod Becerra M.D. Date: 0 03/15/2024 Generated for Tyrese kurtz/Rosalba/Caitlynitting on: 1 02:59 PM EDT
--- OUTSIDE RECORDS SUMMARY | 2024-12-22 11:00 | XMS_ITS ---
Author Organization [facility] Address [address] [place] [phone] Care Team Providers Care Candy Depositing Machine Operator Name Role Phone Melania Leonard Primary Care Provider [phone] Roberto Becerra Unavailable [phone] Allergies No Known Allergies Results Component Value [...] 12/22/2024 Encounters Encounter Location Date Provider Diagnosis [facility] [address] [place] [phone] 12/22/2024 Roberto Becerra COVID-19 U07.1 Assessments Encounter [...] * Cody FAJARDOOB:[birth year] (55 yo F)Acc No.[id number]:12/22/2024 Progress Notes Patient: Allison PRIETO Provider: Jerrod Becerra M.D. :1970 A ge:54 Y S ex:Female Date:12/22/2024 Address:[address] [place] [address] , [place], [id number] Pcp:Melania Leonard Subjective: * Chief Complaints: * [...] auscultation bilaterally. Assessment: * Assessment: 1. C [place]-19 - U07.1 (Primary) Plan: * Treatment: Value [...] Flu Test- Nasal Swab, Modifiers: QW , 21852 COVID TEST IN HOUSE, Modifiers: QW * Follow Up: p rn * Images: Billing Information: * Visit Code: 28848 Office Visit, Est Pt., Level 3. * Procedure Codes: 27605 Flu Test- Nasal Swab. Modifiers: QW 53436 COVID TEST IN HOUSE. Modifiers: QW * Electronic signature of Carolina Becerra MD on 08/21/2025 at 02:58 PM EDT Sign off status: Pending * Provider: Jerrod Becerra M.D. Date: 0 12/22/2024 Generated for Tyrese kurtz/Rosalba/eTjay jaysmitting on: 1 02:58 PM EDT History and Physical Notes * HPI (History [...]
--- OUTSIDE RECORDS SUMMARY | 2025-07-15 07:30 | XMS_ITS ---
Author Organization [facility] Address [address] [place] [id number] Care Team Providers Care Crusher Wet Ground Mica Name Role Phone Melania Leonard Primary Care Provider Roberto Becerra Unavailable [phone] Allergies No Known Allergies Results Component Value [...] 146 Performing Lab: Notes/Report: Test performed by [employer], [id number] , [address], [place] [address] Swapnil Cruz MD, Animal Husbandry Manager CLIA: [id number] Sodium 141 135-145 mmol/L Potassium 4.3 3.5-5.3 [...] Interpretation:Normal Performing Lab: Notes/Report: Test performed by [employer] [address] [place] [address] , [facility] [place] [address] Swapnil Cruz MD, Animal Husbandry Manager CLIA: [id number] Thyroxine Free (free T4) 1.24 0.86-1.76 ng/dL P-Lipid Panel Reviewed date:07/16/2025 12:59:44 PM Interpretation:trigs 179, hdl 39, chol/hdl 4.77, non-hdl 147 Performing Lab: Notes/Report: Test performed by [facility] [address] [place] [address] , [place] [address] Swapnil Cruz MD, Animal Husbandry Manager CLIA: [id number] Cholesterol 186 <200 mg/dL Triglycerides 179 <150 [...] Interpretation:0.06 Performing Lab: Notes/Report: Test performed by [facility] [address] [place] [address] [place] [address] Swapnil Cruz MD, Animal Husbandry Manager CLIA: [id number] TSH reflex to FT4 0.06 0.43-5.25 mU/L P-Vitamin D 25-Hydroxy Reviewed date:07/16/2025 12:59:44 PM Interpretation:35 Performing Lab: Notes/Report: Test performed by [facility] [address] [place] [address] , [place] [address] Swapnil Cruz MD, Animal Husbandry Manager CLIA: [id number] Vitamin D 25-Hydroxy 35.0 30.0-100.0 ng/mL Interpretation [...] Status Risk Notes Problem Vitamin D deficiency (56847015) Vitamin D deficiency (E55.9) Active confirmed Vital Signs Blood pressure systolic 128 mm Hg 07/15/20 25 Blood pressure diastolic 78 mm Hg 025 Heart Rate 88 /min 07/15/2025 Height 65 in 07/15/2025 Weight 142.4 lbs 07/15/2025 BMI 23.69 kg/m2 07/15/2025 Encounters Encounter Location Date Provider Diagnosis [facility] [address] [facility] [address] [place] [address], [place] [id number] 07/15/2025 Roberto Bandon Right-sided chest pa in R07.9 ; Chronic [...] * Cody FAJARDOOB:[birth year] (55 yo F)Acc No.[id number]:07/15/2025 Progress Notes Patient: Allison PRIETO Provider: Jerrod Becerra M.D. :1970 A ge:55 Y S ex:Female Date:07/15/2025 Address:[address] [place], [place] [address] , [place], [id number] Pcp:Melania Leonard Subjective: * Chief Complaints: * [...] D deficiency - E55.9 5 . B ID 23.0-23.9, adult - Z68.23 Plan: * Treatment: [...] T4) 1.24 0.86-1.76 - ng/d L * [facility], IT support 07/16/2025 10:45:11 : This order was created by the Interface. Hafsa Alvarado 07/16/2025 12:59:37 PM EDT > See phone encounter * Procedure Codes: 8 5025 CBC WITH AUTO DIFF, 3074F SYST BP LT 130 MM HG, 3078F DIAST BP < 80 MM HG * Follow Up: v ia phone to report test results * Images: Billing Information: * Visit Code: 95213 Office Visit, Est Pt., Level 4. * Procedure Codes: 58918 CBC WITH AUTO DIFF. 3074F SYST BP LT 130 MM HG. 3078F DIAST BP < 80 MM HG. * Electronic signature of Carolina Becerra MD on 08/21/2025 at 02:59 PM EDT Sign off status: Pending * Provider: Jerrod Becerra M.D. Date: 0 07/15/2025 Generated for Tyrese kurtz/Rosalba/Jackson on: 1 02:59 PM EDT History and Physical Notes * [...]
--- OUTSIDE RECORDS SUMMARY | 2025-08-04 06:42 | XMS_ITS ---
Author Organization [facility] Address [address] [facility] [address] [place] [phone] Care Team Providers Care Wood Carver Hand Name Role Phone Melania Leonard Primary Care Provider REASON FOR VISIT due for LDCT and Mammo Problems Problem Type SNOMED Code ICD Code Onset Dates Problem Status W/U Status Risk Notes Problem Abnormal findings on diagnostic imaging of breast (451525225) Other abnormal and inconclusive findings on diagnostic imaging of breast (R92.8) Active confirmed Encounters Encounter Location Date Provider Diagnosis [facility] [address] [place] [phone] 08/04/2025 Melania Leonard Breast cancer screen ing by mammogram Z12.31 and Encounter for screening for lung cancer Z12.2 Assessments Encounter Date Diagnosis (ICD Code) Assessment Notes Treatment Notes Treatment Clinical Notes Section Notes 08/04/2025 Breast cancer screening by mammogram (ICD-10 - Z12.31) 08/04/2025 Encounter for screening for lung cancer (ICD-10 - Z12.2) Plan Of Treatment Pending Test Test Name Order Date Mammogram 08/04/2025 CT Scan : Chest, low dose 08/04/2025 Progress Notes * Cody FAJARDOOB:[birth year] (55 yo F)Acc No.[id number]:08/04/2025 Patient: Allison PRIETO :1970 A ge:55 Y S ex:Female Address:[address] , [place], [place] [address] Subjective: * Chief Complaints: * d ue for LDCT and Mammo * Medical History: * Surgical History: * Hospitalization/Major Diagno stic Procedure: * Medications: Objective: * Vitals: * Physical Examination: Assessment: * Assessment: 1. B reast cancer screening by mammogram - Z12.31 2 . E ncounter for screening for lung cancer - Z12.2 Plan: * Treatment: 2.?Encounter for screening for lung cancer?Imaging: CT Scan : Chest, low dose* Shaina Purdy 08/11/2025 02:3 6:32 PM EDT >sent to [facility] for referral to [facility] * Procedure Codes: * true * Date: Generated for Tyrese kurtz/Rosalba/Caitlynitting on: 02:59 PM EDT
--- NOTE | 2025-08-21 14:58 | CT_ITS ---
FINAL REPORT TECHNIQUE: Thin section axial images were obtained through the lungs using a low-dose technique per lung cancer screening protocol. Reconstruction images were obtained using the axial data. Exam was performed using dose reduction technique. CLINICAL HISTORY: lung screening, smokes 1 pack per day for 30 yrs. exposed to second hand smoke COMPARISON: 09/07/2023 FINDINGS: CTDLvol: 2.90 DLP: 1.16 Current smoker 30 pack year history Lungs: Bilateral subcentimeter noncalcified pulmonary nodules are stable. Index lesion in the left lower lobe measures 4 mm on image 4 series 58. Calcified granulomas are present. No new nodules. No consolidations. Lymph nodes: Small mediastinal lymph nodes are stable. Mediastinum: Heart size is normal. Pleura/pericardium: No pleural or pericardial effusion. Other: No acute abnormality in the upper abdomen. IMPRESSION: Stable bilateral noncalcified pulmonary nodules. Lung RADS: 2 Recommendation: 12-month follow-up low-dose chest CT. Reviewed, Interpreted and Dictated by Carmen Glover MD Transcribed by Laure Suarez Authenticated and [facility]
--- NOTE | 2025-08-21 14:59 | MM_ITS ---
PROCEDURE INFORMATION: Exam: MG Bilateral Screening 3D Mammography Exam date and time: 08/21/2025 3:06 PM Age: 55 years old Clinical indication: Screening examination TECHNIQUE: Imaging protocol: Bilateral Screening tomosynthesis and 2D mammography including computer-aided detection (CAD) when performed. COMPARISON: 1. MG MM DIG SCREENING MAMM BI W/CAD 08/28/2023 12:53 PM 2. MG MM DIG SCREENING MAMM BI W/CAD 08/24/2022 11:42 AM FINDINGS: MAMMOGRAPHY: Breast composition: There are scattered areas of fibroglandular density. Mass: None. Architectural distortion: None. Calcifications: No suspicious calcifications. Asymmetric density: None. Skin thickening: None. Axillary adenopathy: None. IMPRESSION: No mammographic evidence of malignancy. Annual screening is recommended unless otherwise clinically indicated. ASSESSMENT: BI-RADS Category 1: Negative.
--- OUTSIDE RECORDS SUMMARY | 2025-08-21 14:59 | XMS_ITS | Patient Health Record ---
Author Organization [facility] Address [address] [place] [id number] Care Team Providers Care [facility] Redevelopment Manager Name Role Phone Melania Leonard Primary Care Provider [phone] Robreto Becerra Unavailable [phone] Allergies No Known Allergies Results Component Value Reference Range Notes Influenza Screen (in house) Reviewed date:12/22/2024 03:45:45 PM Interpretation: Performing Lab: Notes/Report: results Neg Covid test (in house) Reviewed date:12/22/2024 03:46:08 PM Interpretation: Performing Lab: Notes/Report: Result: Pos CBC Venipuncture (in house) Reviewed date:07/15/2025 06:30:25 [...] PM Interpretation:alk phos 146 Performing Lab: Notes/Report: CLIA: [id number] Swapnil Cruz MD, Manager Plan [facility] , [address], [place] [address] Test performed by [facility], [facility] Sodium 141 135-145 mmol/L Potassium 4.3 3.5-5.3 [...] 0.3 <0.2-1.2 mg/dL A/G Ratio 1.7 1.1-2.5 P-Lipid Panel Reviewed date:07/16/2025 12:59:44 PM Interpretation:trigs 179, hdl 39, chol/hdl 4.77, non-hdl 147 Performing Lab: Notes/Report: Test performed by [facility], [address] , [address], [place] [address] CLIA: [id number] Swapnil Cruz MD, Manager Plan Cholesterol 186 <200 mg/dL Triglycerides 179 <150 [...] Interpretation:0.06 Performing Lab: Notes/Report: Test performed by [facility] [address] [place] [address] , [place] [address] Swapnil Cruz MD, Manager Plan CLIA: [id number] TSH reflex to FT4 0.06 0.43-5.25 mU/L P-Vitamin D 25-Hydroxy Reviewed date:07/16/2025 12:59:44 PM Interpretation:35 Performing Lab: Notes/Report: Test performed by [facility] [address] [place] [address] , [place] [address] Swapnil Cruz MD, Manager Plan CLIA: [id number] Vitamin D 25-Hydroxy 35.0 30.0-100.0 ng/mL Interpretation of Vitamin D 25 [place]: < 20 ng/mL - Deficiency 20 - 29 ng/mL - Insufficiency 30 - 100 ng/mL - Sufficiency > 100 ng/mL - Super-therapeutic- toxicity may occur above this level. Clinical correlation required. CXR Reviewed date:07/16/2025 12:59:44 PM Interpretation:Negative Performing Lab: Notes/Report: Negative P-T4 Free (thyroxine) Reviewed date:07/16/2025 12:59:44 PM Interpretation:Normal Performing Lab: Notes/Report: Test performed by [facility] [address] [place] [address] , [address], [place] [address] Swapnil Cruz MD, Manager Plan CLIA: [id number] Thyroxine Free (free T4) 1.24 0.86-1.76 ng/dL Reason For Referral No Information Medications Medication SIG (Take, Route, Frequency, Duration) Notes Start Date End Date Status Vitamin D3 50 MCG (1999) 2 tablet Orally daily; Duration: 30 days 07/24/2025 Active Problems Problem Type SNOMED Code ICD Code Onset Dates Problem Status W/U Status Risk Notes Problem Sinusitis (55111452) Sinusitis (J32.9) Active c onfirmed Problem Vitamin D deficiency (93542380) Vitamin D deficiency (E55.9) Active confirmed Problem Hypertriglyceridemia (541324629) Hypertriglyceridemia (E78.1) Active confirmed Problem Tobacco user (630247082) Smoking addiction (F17.200) Active confirmed Problem Mixed hyperlipidemia (573577478) Mixed hyperlipidemia (E78.2) Active confirmed Problem Abnormal findings on diagnostic imaging of breast (829259932) Other abnormal and inconclusive findings on diagnostic imaging of breast (R92.8) Active confirmed Problem Generalized anxiety disorder (00279143) Anxiety, generalized (F41.1) Active confirmed Problem Tobacco user (249660318) Cigarette nicotine dependence without complication (F17.210) Active confirmed Problem Recurrent major depression (39833547) Episode of recurrent major depressive disorder, unspecified depression episode severity (F33.9) Active confirmed Vital Signs Heart Rate 101 /min 08/21/2025 Blood pressure diastolic 78 mm Hg 08/21/2025 Height 65 in 08/21/2025 Blood pressure systolic 130 mm Hg 08/21/2025 Weight 135.4 lbs 08/21/2025 BMI 22.53 kg/m2 08/21/2025 Encounters Encounter Location Date Provider Diagnosis [facility] [address] [place], [place] [id number] 12/22/2024 Roberto Becerra COVID-19 U07.1 [facility] [address] [place] [id number] 07/15/2025 Robertokelin Becerra Right-sided chest pa in R07.9 ; Chronic cough R05.3 ; Mixed hyperlipidemia E78.2 ; Vitamin D deficiency E55.9 and BMI 23.0-23.9, adult Z68.23 [facility] [address] [place] [id number] 08/21/2025 Melania Leonard Anxiety, generalized F41.1 ; Abnormal TSH R79.89 ; Vitamin D deficiency E55.9 and Other fatigue R53.83 [facility] [address] [place] [id number] 07/16/2025 [facility] [place] [facility] [address] [place] [id number] 08/04/2025 Melania Leonard Breast cancer screen ing by mammogram Z12.31 and Encounter for screening for lung cancer Z12.2 Assessments Encounter Date Diagnosis (ICD Code) Assessment Notes Treatment Notes Treatment Clinical Notes Section Notes 12/22/2024 COVID-19 (ICD-10 - U07.1) 07/15/2025 Right-sided chest pain (ICD-10 - R07.9) 07/15/2025 Chronic cough (ICD-10 - R05.3) 08/04/2025 Breast cancer screening by mammogram (ICD-10 - Z12.31) 08/21/2025 Anxiety, generalized (ICD-10 - F41.1) 08/21/2025 Abnormal TSH (ICD-10 - R79.89) 08/21/2025 Vitamin D deficiency (ICD-10 - E55.9) 08/04/2025 Encounter for screening for lung cancer (ICD-10 - Z12.2) 07/15/2025 Mixed hyperlipidemia (ICD-10 - E78.2) 07/15/2025 Vitamin D deficiency (ICD-10 - E55.9) 08/21/2025 Other fatigue (ICD-10 - R53.83) 07/15/2025 BMI 23.0-23.9, adult (ICD-10 - Z68.23) Plan Of Treatment Pending Test Test Name Order Date Mammogram 08/04/2025 CT Scan : Chest, low dose 08/04/2025 P-Vitamin B12 08/21/2025 P-T4 Free (thyroxine) 08/21/2025 P-Thyroid Antibody Panel (TABS) 08/21/20 25 P-TSH 08/21/2025 P-Vitamin D 25-Hydroxy 08/21/2025 Insurance Providers Payer Name Payer Address Payer Phone Subscriber Number Group Number Insured Name Patient Relationship to Insured Coverage Start Date Coverage End Date [facility] [address] [address] [place] [phone] [id number] Allison Zamarripa Self - patient is the insured Medical (General) History Medical History History ICD Code 20 pack year smoking history as of 2022 Colon Polyps Depression Surgical History Surgery Date(Month/Year) Colonoscopy - Numerous
== END 2025-08-21 23:59 | disposition home or self-care (01) ==
LOC: RAD 14:57
PROVIDERS: PCP Physician Assistant; Visit Provider Physician Assistant
DX: Z12.31 Encounter for screening mammogram for malignant neoplasm of breast (principal); R92.323 Mammographic fibroglandular density, bilateral breasts; Z12.2 Encounter for screening for malignant neoplasm of respiratory organs; F17.210 Nicotine dependence, cigarettes, uncomplicated; R91.8 Other nonspecific abnormal finding of lung field; J98.4 Other disorders of lung
CPT/HCPCS: 71271; 77063; 77067

== ENCOUNTER 2025-09-23 10:44 | Outpatient (CLI) | payer OTHER, SELFPAY ==
[2025-09-23 12:40] LABS: Free T4 (Free Thyroxine) 1.28 ng/dl (0.78-2.19)
[2025-09-23 12:54] LABS: Thyroid Stimulating Hormone < 0.02 uIU/mL (0.465-4.68)
== END 2025-09-23 23:59 | disposition home or self-care (01) ==
LOC: LAB 10:45
PROVIDERS: PCP Physician Assistant; Visit Provider Student in an Organized Health Care Education/Training Program
DX: E05.90 Thyrotoxicosis, unspecified without thyrotoxic crisis or storm (principal)
CPT/HCPCS: 36415; 83520; 84439; 84443

== ENCOUNTER 2025-11-09 09:14 | Outpatient (CLI) | payer OTHER, SELFPAY ==
--- OUTSIDE RECORDS SUMMARY | 2024-12-22 10:00 | XMS_ITS ---
Author Organization [facility] Address [address] [place] [phone] Care Team Providers Care Lead Warehouse Associate Name Role Phone Melania Leonard Primary Care Provider Roberto Becerra Unavailable [phone] Allergies No Known Allergies Results Component Value Reference Range Notes Influenza Screen (in house) Reviewed date:12/22/2024 03:45:45 PM Interpretation: Performing Lab: Notes/Report: results Neg Covid test (in house) Reviewed date:12/22/2024 03:46:08 PM Interpretation: Performing Lab: Notes/Report: Result: Pos REASON FOR VISIT poss sinus infection Medications Medication SIG (Take, Route, Frequency, Duration) Notes Start Date End Date Status Mupirocin 2 % as directed External ly Twice a day 12/22/2024 Active Promethazine-DM 6.25-15 MG/5ML 5 ml as needed Orally every 6 hrs 12/22/2024 Active Osteo Bi-Flex Triple Strength - as directed Orally 03/03/2024 Active Vital Signs Blood pressure systolic 132 mm Hg 12/22/19 25 Blood pressure diastolic 72 mm Hg 025 Heart Rate 122 /min 12/22/2024 Height 65 in 12/22/2024 Weight 142 lbs 12/22/2024 BMI 23.63 kg/m2 12/22/2024 Encounters Encounter Location Date Provider Diagnosis [facility] [address] [place] [phone] 12/22/2024 Roberto Becerra COVID-19 U07.1 Assessments Encounter Date Diagnosis (ICD Code) Assessment Notes Treatment Notes Treatment Clinical Notes Section Notes 12/22/2024 COVID-19 (ICD-10 - U07.1) Plan Of Treatment Medication Medication Name Sig Start Date Stop Date Notes Mupirocin 2 % as directed External ly Twice a day 12/22/2024 Promethazine-DM 6.25-15 MG/5ML 5 ml as needed Orally every 6 hrs 12/22/2024 Next Appt Details Follow Up: prn, Reason: Progress Notes * Cody FAJARDOOB:[birth year] (55 yo F)Acc No.[id number]:12/22/2024 Progress Notes Patient: Allison PRIETO Provider: Jerrod Becerra M.D. :1970 A ge:54 Y S ex:Female Date:12/22/2024 Address:[address] [place] [address] , [place], [id number] Pcp:Melania Leonard Subjective: * Chief Complaints: * 1 . Poss sinus infection. * HPI: E NT/respiratory: 54 year old female presents with c/o cough P t complains of dry without any sputum production cough that started Sunday. Associated with nasal congesiton, fever and body aches. Pt states she has a lot of pressure behind her eyes as well. * ROS: D ERMATOLOGY: no R pasha. n o H davon. G ASTROENTEROLOGY: no N ausea. n o V omiting. U ROLOGY: no D ifficulty urinating. n o B lood in urine. * Medical History: 2 0 pack year smoking history as of 2022, Colon Polyps, Depression. * Surgical History: C olonoscopy - Numerous . * Hospitalization/Major Diagno stic Procedure: D enies Past Hospitalization. * Family History: F ather: alive. M other: alive, diagnosed with Cancer. 1 brother(s) , 1 sister(s) . 3 son(s) . . * Social History: C affeine: yes, frequency:2. Exercise: yes. Home smoke detector use: yes. Marital Status: Single. Past smoking status: yes, Smoking status: Patient does smoke, Number Cigarettes per day: 10, Since age of: 20. Recreational drug use: no. Alcohol: No. * Medications: T aking Osteo Bi-Flex Triple Strength - Tablet as directed Orally , Medication List reviewed and reconciled with the patient * Allergies: N .K.D.A. Objective: * Vitals: W t:142, Temp:98.4, BP:132/72, HR:122, Nurse:barbara, Ht: 65, BMI:23.63. * Examination: E NT/Respiratory: General Appearance: N AD. N ose : s mall sore at the opening of nares. O ral cavity : erythema without exudate on pharynx. H eart : R RR, normal S1 S2. L ungs: c lear to auscultation bilaterally. Assessment: * Assessment: 1. C [place]-19 - U07.1 (Primary) Plan: * Treatment: Value Reference Range r esults Neg * Leticia Lopez 12/22/2024 3:01:40 PM > , Provider reviewed results while patient in office. ?LAB: Covid test (in house) (Collection Date & Time - 12/22/2024)* Value Reference Range R esult: Pos * Leticia Lopez 12/22/2024 3:01:22 PM > , Provider reviewed results while patient in office. 2.?Others? Start Mupirocin Ointment, 2 %, as directed, Externally, Twice a day, 22 grams, Refills 0.? * Procedure Codes: 8 7804 Flu Test- Nasal Swab, Modifiers: QW , 64752 COVID TEST IN HOUSE, Modifiers: QW * Follow Up: p rn * Images: Billing Information: * Visit Code: 86518 Office Visit, Est Pt., Level 3. * Procedure Codes: 71772 Flu Test- Nasal Swab. Modifiers: QW 93067 COVID TEST IN HOUSE. Modifiers: QW * Electronic signature of Carolina Becerra MD on 11/09/2025 at 09:18 AM EST Sign off status: Pending * Provider: Jerrod Becerra M.D. Date: 0 12/22/2024 Generated for Ivisi tessie/Rosalba/eTransmitting on: 1 01/10/2025 09:18 AM EST History and Physical Notes * HPI (History of Present Illness) Category Sub-Category Detail Notes Category Not es ENT/respiratory cough Pt complains of dry without any sputum production cough that started Sunday. Associated with nasal congesiton, fever and body aches. Pt states she has a lot of pressure behind her eyes as well Examination Category Sub-Category Detail Notes Category Not es ENT/Respiratory Oral cavity : erythema without exudate on pharynx Heart : RRR, normal S1 S2 Lungs: clear to auscultatio n bilaterally General Appearance: NAD Nose : small sore at the op ening of nares
--- OUTSIDE RECORDS SUMMARY | 2025-07-15 06:30 | XMS_ITS ---
Author Organization [facility] Address [address] [place] [id number] Care Team Providers Care Shoe Cleaner Name Role Phone Melania Leonard Primary Care Provider Roberto Becerra Unavailable [phone] Allergies No Known Allergies Results Component Value Reference Range Notes CBC Venipuncture (in house) Reviewed date:07/15/2025 06:30:25 PM Interpretation: Performing Lab: Notes/Report: wbc 8.1 3.5 - 10 lymph 33.9 15 - 50 mid 8.3 2 - 15 gran 57.8 35 - 80 rbc 4.83 3.5 - 5.5 hgb 14.7 11.5 - 16.5 hct 43.2 35 - 55 mcv 89.3 75 - 100 mch 30.4 25 - 35 mchc 34.0 31 - 38 platlet 310 100 - 400 P-Comprehensive Metabolic Pa susana (CMP) Reviewed date:07/16/2025 12:59:44 PM Interpretation:alk phos 146 Performing Lab: Notes/Report: Test performed by [employer], [facility] , [address], [place] [address] Swapnil Cruz MD, Check Out Cashier CLIA: [id number] Sodium 141 135-145 mmol/L Potassium 4.3 3.5-5.3 mmol/L Chloride 103 97-108 mmol/L CO2 26 20-32 mmol/L Glucose 83 65-99 mg/dL BUN 6 6-20 mg/dL Creatinine 0.74 0.50-1.00 mg/dL Calcium 9.9 8.6-10.4 mg/dL eGFR by Creatinine 96 >59 mL/min/1.73m2 Protein 6.9 6.0-8.3 g/dL Albumin 4.3 3.5-5.3 g/dL Alkaline Phosphatase 146 35-121 IU/L ALT (SGPT) 13 <5-47 IU/L AST (SGOT) 13 <5-40 IU/L Bilirubin, Total 0.3 <0.2-1.2 mg/dL A/G Ratio 1.7 1.1-2.5 P-T4 Free (thyroxine) Reviewed date:07/16/2025 12:59:44 PM Interpretation:Normal Performing Lab: Notes/Report: Test performed by [employer] [address] [place] [address] , [place] [address] Swapnil Cruz MD, Check Out Cashier CLIA: [id number] Thyroxine Free (free T4) 1.24 0.86-1.76 ng/dL P-Lipid Panel Reviewed date:07/16/2025 12:59:44 PM Interpretation:trigs 179, hdl 39, chol/hdl 4.77, non-hdl 147 Performing Lab: Notes/Report: Test performed by [employer] [address] [place] [address] , [place] [address] Swapnil Cruz MD, Check Out Cashier CLIA: [id number] Cholesterol 186 <200 mg/dL Triglycerides 179 <150 mg/dL HDL Cholesterol 39 >39 mg/dL Cholesterol / HDL Ratio 4.77 0.00-4.44 Ratio Non-HDL Cholesterol 147 <130 mg/dL LDL Cholesterol (Calculation) 111 <130 mg/dL LDL Cholesterol Levels* Less than 100 mg/dL Optimal 100 to 129 mg/dL Near Optimal/ Above Optimal 130 to 159 mg/dL Borderline High 160 to 189 mg/dL High 190 mg/dL and above Very High * Categories as recommended by the 2004 ATPIII guidelines LDL/HDL Ratio 2.9 <3.3 Ratio LDL Cholesterol Patient History Test Date: 03/15/2024 LDL Results: 143 Units: mg/dL % Change: - Test Date: 07/15/2025 LDL Results: 111 Units: mg/dL % Change: -22% P-TSH reflex to FT4 Reviewed date:07/16/2025 12:59:44 PM Interpretation:0.06 Performing Lab: Notes/Report: Test performed by [employer] [address] [place] [address] [place] [address] Swapnil Cruz MD, Check Out Cashier CLIA: [id number] TSH reflex to FT4 0.06 0.43-5.25 mU/L P-Vitamin D 25-Hydroxy Reviewed date:07/16/2025 12:59:44 PM Interpretation:35 Performing Lab: Notes/Report: Test performed by [employer] [address] [place] [address] , [place] [address] Swapnil Cruz MD, Check Out Cashier CLIA: [id number] Vitamin D 25-Hydroxy 35.0 30.0-100.0 ng/mL Interpretation of Vitamin D 25 OH: < 20 ng/mL - Deficiency 20 - 29 ng/mL - Insufficiency 30 - 100 ng/mL - Sufficiency > 100 ng/mL - Super-therapeutic- toxicity may occur above this level. Clinical correlation required. CXR Reviewed date:07/16/2025 12:59:44 PM Interpretation:Negative Performing Lab: Notes/Report: Negative REASON FOR VISIT chest pains Medications Medication SIG (Take, Route, Frequency, Duration) Notes Start Date End Date Status Promethazine-DM 6.25-15 MG/5ML 5 mL as needed Orally every 6 hrs 07/15/2025 Active Problems Problem Type SNOMED Code ICD Code Onset Dates Problem Status W/U Status Risk Notes Problem Vitamin D deficiency (32498879) Vitamin D deficiency (E55.9) Active confirmed Vital Signs Blood pressure systolic 128 mm Hg 07/15/20 25 Blood pressure diastolic 78 mm Hg 025 Heart Rate 88 /min 07/15/2025 Height 65 in 07/15/2025 Weight 142.4 lbs 07/15/2025 BMI 23.69 kg/m2 07/15/2025 Encounters Encounter Location Date Provider Diagnosis [facility] [address] [facility] [address] [place] [address], [place] [id number] 07/15/2025 Roberto Kirkland Right-sided chest pa in R07.9 ; Chronic cough R05.3 ; Mixed hyperlipidemia E78.2 ; Vitamin D deficiency E55.9 and BMI 23.0-23.9, adult Z68.23 Assessments Encounter Date Diagnosis (ICD Code) Assessment Notes Treatment Notes Treatment Clinical Notes Section Notes 07/15/2025 Right-sided chest pain (ICD-10 - R07.9) 07/15/2025 Chronic cough (ICD-10 - R05.3) 07/15/2025 Mixed hyperlipidemia (ICD-10 - E78.2) 07/15/2025 Vitamin D deficiency (ICD-10 - E55.9) 07/15/2025 BMI 23.0-23.9, adult (ICD-10 - Z68.23) Plan Of Treatment Medication Medication Name Sig Start Date Stop Date Notes Promethazine-DM 6.25-15 MG/5ML 5 mL as n eeded Orally every 6 hrs 07/15/2025 Next Appt Details Follow Up: via phone to repo rt test results, Reason: Progress Notes * Cody FAJARDOOB:[birth year] (55 yo F)Acc No.[id number]:07/15/2025 Progress Notes Patient: Allison PRIETO Provider: Jerrod Becerra M.D. :1970 A ge:55 Y S ex:Female Date:07/15/2025 Address:[address] [place], [place] [address]Carl[place] , [place], [id number] Pcp:Melania Leonard Subjective: * Chief Complaints: * 1 . Chest pains. * HPI: C ardiology: 55 year old female presents with c/o Chest Pain f or 4 weeks P t presents with chest pain that moves around. Pt sts that it sometimes goes straight across her chest but other times it will be localized to one side. Pt sts that today her pain is on the right side of her chest and goes under her arm and into her shoulder. Pt sts that she sometimes feels a sensation of something balled up at the bottom of her sternum as well but does not know that it is related to the chest pains. Pt sts that she has been having chest pains on and off for over a month now. * ROS: D ERMATOLOGY: no R pasha. [...] drug use: no. Alcohol: No. * Medications: D iscontinued Osteo Bi-Flex Triple Strength - Tablet as directed Orally , Discontinued Promethazine-DM 6.25-15 MG/5ML Syrup 5 ml as needed Orally every 6 hrs , Discontinued Mupirocin 2 % Ointment as directed Externally Twice a day , Medication List reviewed and reconciled with the patient * Allergies: N .K.D.A. Objective: * Vitals: W t: 142.4, Temp: 98.5, BP: 128/78, HR: 88, Nurse: ASHLEIGH, Ht: 65, BMI:23.69. * Examination: E NT/Respiratory: General Appearance: N AD. O ral cavity : n o erythema or exudate seen on pharynx. H eart : R RR, normal S1 S2. L ungs: c lear to auscultation bilaterally. E xtremities : n o edema. Assessment: * Assessment: 1. R ight-sided chest pain - R07.9 (Primary) 2 . C hronic cough - R05.3? 3. M ixed hyperlipidemia - E78.2 4 . V itamin D deficiency - E55.9 5 . B ND 23.0-23.9, adult - Z68.23 Plan: * Treatment: 2.?Chronic cough? Start Promethazine-DM Syrup, 6.25-15 MG/5ML, 5 mL as needed, Orally, every 6 hrs, 473 mL, Refills 1.?LAB: CBC Venipuncture (in house) (Collection Date & Time - 07/15/2025)* Value Reference Range w bc 8.1 3.5 - 10 * l ymph 33.9 15 - 50 * m id 8.3 2 - 15 * g ran 57.8 35 - 80 * r bc 4.83 3.5 - 5.5 * h gb 14.7 11.5 - 16.5 * h ct 43.2 35 - 55 * m cv 89.3 75 - 100 * m ch 30.4 25 - 35 * m chc 34.0 31 - 38 * p latlet 310 100 - 400 * Ivon Cai 07/15/2025 12: 49:45 PM EDT >Roberto Becerra 07/15/2025 06:30:21 PM EDT > 3.?Mixed hyperlipidemia?LAB: P-Comprehensive Metabolic Panel (CMP) (Collection Date & Time - 07/15/2025 11:15 AM)?alk phos 146* Value Reference Range A /G Ratio 1.7 1.1-2.5 - * A lbumin 4.3 3.5-5.3 - g/dL * A lkaline Phosphatase 146 H 35-121 - IU/L * A LT (SGPT) 13 <5-47 - IU/L * A ST (SGOT) 13 <5-40 - IU/L * B ilirubin, Total 0.3 <0.2-1.2 - mg/dL * B UN 6 6-20 - mg/dL * C alcium 9.9 8.6-10.4 - mg/dL * C hloride 103 97-108 - mmol/L * C O2 26 20-32 - mmol/L * C reatinine 0.74 0.50-1.00 - mg/dL * G lucose 83 65-99 - mg/dL * P otassium 4.3 3.5-5.3 - mmol/L * S odium 141 135-145 - mmol/L * P rotein 6.9 6.0-8.3 - g/dL * e GFR by Creatinine 96 >59 - mL/min/1.73m2 * Hafsa Alvarado 07/16/20 12:59:37 PM EDT > See phone encounter ?LAB: P-Lipid Panel (Collection Date & Time - 07/15/2025 11:15 AM)?trigs 179, hdl 39, chol/hdl 4.77, non-hdl 147* Value Reference Range C holesterol / HDL Ratio 4.77 H 0.00-4.44 - Ratio * C holesterol 186 <200 - mg/dL * H DL Cholesterol 39 L >39 - mg/dL * L DL Cholesterol (Calculation) 111 <130 - mg/d L * L DL/HDL Ratio 2.9 <3.3 - Ratio * N on-HDL Cholesterol 147 H <130 - mg/dL * T riglycerides 179 H <150 - mg/dL * Hafsa Alvarado Ann 07/16/20 12:59:37 PM EDT > See phone encounter ?LAB: P-TSH reflex to FT4 (Collection Date & Time - 07/15/2025 11:15 AM)? 0.06* Value Reference Range T SH reflex to FT4 0.06 L 0.43-5.25 - mU/L * Hafsa Alvarado 07/16/20 12:59:37 PM EDT > See phone encounter 4.?Vitamin D deficiency?LAB: P-Vitamin D 25-Hydroxy (Collection Date & Time - 07/15/2025 11:15 AM)? 35* Value Reference Range V itamin D 25-Hydroxy 35.0 30.0-100.0 - ng/mL * Hafsa Alvarado 07/16/20 12:59:37 PM EDT > See phone encounter * Labs: * L ab: P-T4 Free (thyroxine) (Collection Date & Time - 07/15/2025 11:15 AM) N ormal Value Reference Range T hyroxine Free (free T4) 1.24 0.86-1.76 - ng/d L * [facility], IT support 07/16/2025 10:45:11 : This order was created by the Interface. Hafsa Alvarado 07/16/2025 12:59:37 PM EDT > See phone encounter * Procedure Codes: 8 5025 CBC WITH AUTO DIFF, 3074F SYST BP LT 130 MM HG, 3078F DIAST BP < 80 MM HG * Follow Up: v ia phone to report test results * Images: Billing Information: * Visit Code: 28471 Office Visit, Est Pt., Level 4. * Procedure Codes: 93084 CBC WITH AUTO DIFF. 3074F SYST BP LT 130 MM HG. 3078F DIAST BP < 80 MM HG. * Electronic signature of Carolina Becerra MD on 11/09/2025 at 09:19 AM EST Sign off status: Pending * Provider: Jerrod Becerra M.D. Date: 0 07/15/2025 Generated for Tyrese kurtz/Rosalba/Jackson on: 1 01/10/2025 09:19 AM EST History and Physical Notes * HPI (History of Present Illness) Category Sub-Category Detail Notes Category Not es Cardiology Chest Pain Pt presents with chest pain that moves around. Pt sts that it sometimes goes straight across her chest but other times it will be localized to one side. Pt sts that today her pain is on the right side of her chest and goes under her arm and into her shoulder. Pt sts that she sometimes feels a sensation of something balled up at the bottom of her sternum as well but does not know that it is related to the chest pains. Pt sts that she has been having chest pains on and off for over a month now Examination Category Sub-Category Detail Notes Category Not es ENT/Respiratory Oral cavity : no erythema or exudate s een on pharynx Heart : RRR, normal S1 S2 Lungs: clear to auscultatio n bilaterally Extremities : no edema General Appearance: NAD
--- OUTSIDE RECORDS SUMMARY | 2025-08-21 04:45 | XMS_ITS ---
Author Organization [facility] Address [address] [place] [id number] Care Team Providers Care Alliance Director Name Role Phone Melania Leonard Primary Care Provider Allergies No Known Allergies Results Component Value Reference Range Notes P-T4 Free (thyroxine) Reviewed date:08/25/2025 01:54:39 PM Interpretation:Normal Performing Lab: Notes/Report: Test performed by [facility] [address] [place] [address] , [address], [place] [address] Swapnil Cruz MD, Associate Medical Director CLIA: [id number] Thyroxine Free (free T4) 1.29 0.86-1.76 ng/dL P-Thyroid Antibody Panel (TA BS) Reviewed date:08/25/2025 01:54:39 PM Interpretation:362 Performing Lab: Notes/Report: Test performed by [facility] [address] [place] [address] , [address], [place] [address] Swapnil Cruz MD, Associate Medical Director CLIA: [id number] Thyroid Peroxidase Antibody 362 <9-34 IU/mL An elevated Thyroid Peroxidase Antibody should not be used alone to make the diagnosis of autoimmune thyroid disease. A result of <34 IU/mL does not definitively rule out the possibility of autoimmune thyroid disease. Thyroglobulin Antibody 69.0 <10-115.0 IU/mL The test is performed by the [employer]i ECLIA methodology. Values obtained with different assay methods or kits cannot be directly compared. P-TSH Reviewed date:08/25/2025 01:54:39 PM Interpretation:0.04 Performing Lab: Notes/Report: Test performed by [facility] [address] [place] [address] , [address], [place] [address] Swapnil Cruz MD, Associate Medical Director CLIA: [id number] TSH 0.04 0.43-5.25 mU/L P-Vitamin D 25-Hydroxy Reviewed date:08/25/2025 01:54:39 PM Interpretation:39.6 Performing Lab: Notes/Report: Test performed by [facility] [address] [place] [address] , [address], [place] [address] Swapnil Cruz MD, Associate Medical Director CLIA: [id number] Vitamin D 25-Hydroxy 39.6 30.0-100.0 ng/mL Interpretation of Vitamin D 25 [place]: < 20 ng/mL - Deficiency 20 - 29 ng/mL - Insufficiency 30 - 100 ng/mL - Sufficiency > 100 ng/mL - Super-therapeutic- toxicity may occur above this level. Clinical correlation required. REASON FOR VISIT 1 Month Follow Up w/ Labs Medications Medication SIG (Take, Route, Frequency, Duration) Notes Start Date End Date Status Vitamin D3 50 MCG (1999) 2 tablet Orally daily; Duration: 30 days 07/24/2025 Active Problems Problem Type SNOMED Code ICD Code Onset Dates Problem Status W/U Status Risk Notes Problem Generalized anxiety disorder (51890493) Anxiety, generalized (F41.1) Active confirmed Vital Signs Blood pressure systolic 130 mm Hg 08/21/20 25 Blood pressure diastolic 78 mm Hg 025 Heart Rate 101 /min 08/21/2025 Height 65 in 08/21/2025 Weight 135.4 lbs 08/21/2025 BMI 22.53 kg/m2 08/21/2025 Encounters Encounter Location Date Provider Diagnosis [facility] [address] [place], [place] [id number] 08/21/2025 Melania Leonard Anxiety, generalized F41.1 ; Abnormal TSH R79.89 ; Vitamin D deficiency E55.9 ; Other fatigue R53.83 and BMI 22.0-22.9, adult Z68.22 Assessments Encounter Date Diagnosis (ICD Code) Assessment Notes Treatment Notes Treatment Clinical Notes Section Notes 08/21/2025 Anxiety, generalized (ICD-10 - F41.1) 08/21/2025 Abnormal TSH (ICD-10 - R79.89) 08/21/2025 Vitamin D deficiency (ICD-10 - E55.9) 08/21/2025 Other fatigue (ICD-10 - R53.83) 08/21/2025 BMI 22.0-22.9, adult (ICD-10 - Z68.22) Plan Of Treatment Pending Test Test Name Order Date P-Vitamin B12 08/21/2025 Next Appt Details Follow Up: via phone to repo rt test results, Reason: Progress Notes * Cody FAJARDOOB:[birth year] (55 yo F)Acc No.[id number]:08/21/2025 Progress Notes Patient: Allison PRIETO Provider: FITZ Bolanos :1970 A ge:55 Y S ex:Female Date:08/21/2025 Address:[address] [place] [address] , [id number] Subjective: * Chief Complaints: * 1 . 1 Month Follow Up w/ Labs. * HPI: H PI: Patient is here today for o ne month f/u and labs. Pt is fasting. Pt states she has no new concerns today. She states that the chest pain has resolved. She would like to speak today about an increase in anxiety, her HR is elevated, she feels like she can never rest, and is exhausted all the time and having brain fog.. * ROS: D ERMATOLOGY: no R pasha. n o H davon. G ASTROENTEROLOGY: no N ausea. n o V omiting. n o D iarrhea.? U ROLOGY: no D ifficulty urinating. n o B lood in urine. * Medical History: 2 0 pack year smoking history as of 2022, Colon Polyps, Depression. * Surgical History: C olonoscopy - Numerous . * Family History: F ather: alive. M [...] no. Alcohol: No. * Medications: T aking Vitamin D3 50 MCG (1999) Tablet 2 tablet Orally daily , Discontinued Promethazine-DM 6.25-15 MG/5ML Syrup 5 mL as needed Orally every 6 hrs , Medication List reviewed and reconciled with the patient * Allergies: N .K.D.A. Objective: * Vitals: W t: 135.4, Temp: 98.4, BP: 130/78, HR: 101, Nurse: pe, Ht: 65, BMI:22.53. * Examination: G eneral Examination: General Appearance: N AD. H EENT: u nremarkable.?Oral cavity: n o lesions, mucosa moist and WNL, no erythema. N jana: s upple, no lymphadenopathy. C hest: n ormal shape and expansion. H eart: R SR. L ungs: c lear to auscultation. A bdomen: n ormal, bowel sounds present, soft and nontender. N eurologic Exam: a lert and oriented. S kin: n ormal, no rash. P eripheral pulses: n ormal (2+) bilaterally. E xtremities: n o leg edema. Assessment: * Assessment: 1. A nxiety, generalized - F41.1 (Primary) 2 . A bnormal TSH - R79.89 ? 3 . V itamin D deficiency - E55.9 4 . O ther fatigue - R53.83? 5. B CA 22.0-22.9, adult - Z68.22 Plan: * Treatment: Value Reference Range T hyroxine Free (free T4) 1.29 0.86-1.76 - ng/d L * Melania Leonard 08/21/2025 0 9:58:09 AM EDT >room 5 Ivon Cai 08/25/2025 01:54:31 PM EDT > See phone encounter ?LAB: P-Thyroid Antibody Panel (TABS) (Collection Date & Time - 08/21/2025 09:16 AM)?362* Value Reference Range T hyroid Peroxidase Antibody 362 H <9-34 - IU/mL * T hyroglobulin Antibody 69.0 <10-115.0 - IU/mL * Melania Leonard 08/21/2025 0 9:58:09 AM EDT >room 5 Ivon Cai 08/25/2025 01:54:31 PM EDT > See phone encounter ?LAB: P-TSH (Collection Date & Time - 08/21/2025 09:16 AM)?0.04* Value Reference Range T SH 0.04 L 0.43-5.25 - mU/L * Melania Leonard 08/21/2025 0 9:58:09 AM EDT >room 5 Ivon Cai 08/25/2025 01:54:31 PM EDT > See phone encounter 2.?Vitamin D deficiency?LAB: P-Vitamin D 25-Hydroxy (Collection Date & Time - 08/21/2025 09:16 AM)? 39.6* Value Reference Range V itamin D 25-Hydroxy 39.6 30.0-100.0 - ng/mL * Melania Leonard 08/21/2025 0 9:58:09 AM EDT >room 5 Ivon Cai 08/25/2025 01:54:31 PM EDT > See phone encounter 3.?Other fatigue?LAB: P-Vitamin B12 * Procedure Codes: 3 075F SYST BP GE 130 - 139MM HG, 3078F DIAST BP < 80 MM HG * Follow Up: v ia phone to report test results * Images: Billing Information: * Visit Code: 73633 Office Visit, Est Pt., Level 4. * Procedure Codes: 3075F SYST BP GE 130 - 139MM HG. 3078F DIAST BP < 80 MM HG. * Electronic signature of FITZ Szymanski on 11/09/2025 at 09:18 AM EST Sign off status: Pending * Provider: FITZ Bolanos Date: Generated for Tyrese ng/Faxing/eTransmitting on: 01/10/2025 09:18 AM EST History and Physical Notes * HPI (History of Present Illness) Category Sub-Category Detail Notes Category Not es HPI Patient is here today for one mo nth f/u and labs. Pt is fasting. Pt states she has no new concerns today. She states that the chest pain has resolved. She would like to speak today about an increase in anxiety, her HR is elevated, she feels like she can never rest, and is exhausted all the time and having brain fog. Examination Category Sub-Category Detail Notes Category Not es General Examination HEENT: unremarkable Heart: RSR Lungs: clear to auscultatio n Abdomen: normal, bowel sounds present, soft and nontender Extremities: no leg edema General Appearance: NAD Skin: normal, no rash Neurologic Exam: alert and oriented Neck: supple, no lymphaden opathy Oral cavity: no lesions, mucosa m oist and WNL, no erythema Peripheral pulses: normal (2+) bilatera lly Chest: normal shape and exp ansion
--- OUTSIDE RECORDS SUMMARY | 2025-11-09 09:19 | XMS_ITS | Patient Health Record ---
Author Organization [facility] Address [address] [place] [id number] Care Team Providers Care County Judge Name Role Phone Melania Leonard Primary Care Provider Roberto Becerra Unavailable [phone] Allergies No Known Allergies Results Component Value Reference Range Notes Influenza Screen (in house) Reviewed date:12/22/2024 03:45:45 PM Interpretation: Performing Lab: Notes/Report: results Neg Covid test (in house) Reviewed date:12/22/2024 03:46:08 PM Interpretation: Performing Lab: Notes/Report: Result: Pos P-T4 Free (thyroxine) Reviewed date:08/25/2025 01:54:39 PM Interpretation:Normal Performing Lab: Notes/Report: Test performed by [facility] [address] [place] [address] , [address], [place] [address] Swapnil Cruz MD, Technical Service Representative CLIA: [id number] Thyroxine Free (free T4) 1.29 0.86-1.76 ng/dL P-Thyroid Antibody Panel (TA BS) Reviewed date:08/25/2025 01:54:39 PM Interpretation:362 Performing Lab: Notes/Report: Test performed by [facility] [address] [place] [address] , [address], [place] [address] Swapnil Cruz MD, Technical Service Representative CLIA: [id number] Thyroid Peroxidase Antibody 362 <9-34 IU/mL An [...] Interpretation:0.04 Performing Lab: Notes/Report: Test performed by [facility] [address] [place] [address] , [place] [address] Swapnil Cruz MD, Technical Service Representative CLIA: [id number] TSH 0.04 0.43-5.25 mU/L P-Vitamin D 25-Hydroxy Reviewed date:08/25/2025 01:54:39 PM Interpretation:39.6 Performing Lab: Notes/Report: Test performed by [facility] [address] [place] [address] , [place] [address] Swapnil Cruz MD, Technical Service Representative CLIA: [id number] Vitamin D 25-Hydroxy 39.6 30.0-100.0 ng/mL Interpretation of Vitamin D 25 OH: < 20 ng/mL - Deficiency 20 - 29 ng/mL - Insufficiency 30 - 100 ng/mL - Sufficiency > 100 ng/mL - Super-therapeutic- toxicity may occur above this level. Clinical correlation required. CT Scan : Chest, low dose Reviewed date:08/25/2025 01:54:39 PM Interpretation:Stable, 12 Month F/U Performing Lab: Notes/Report: Stable, 12 Month F/U Mammogram Reviewed date:08/25/2025 01:54:39 PM Interpretation:Negative Performing Lab: Notes/Report: Negative CXR Reviewed date:07/16/2025 12:59:44 PM Interpretation:Negative Performing Lab: Notes/Report: Negative P-Vitamin D 25-Hydroxy Reviewed date:07/16/2025 12:59:44 PM Interpretation:35 Performing Lab: Notes/Report: Test performed by [facility] [address] [place] [address] , [place] [address] Swapnil Cruz MD, Technical Service Representative CLIA: [id number] Vitamin D 25-Hydroxy 35.0 30.0-100.0 ng/mL Interpretation of Vitamin D 25 OH: < 20 ng/mL - Deficiency 20 - 29 ng/mL - Insufficiency 30 - 100 ng/mL - Sufficiency > 100 ng/mL - Super-therapeutic- toxicity may occur above this level. Clinical correlation required. P-TSH reflex to FT4 Reviewed date:07/16/2025 12:59:44 PM Interpretation:0.06 Performing Lab: Notes/Report: Test performed by [facility] [address] [place] [address] , [place] [address] Swapnil Cruz MD, Technical Service Representative CLIA: [id number] TSH reflex to FT4 0.06 0.43-5.25 mU/L P-Lipid Panel Reviewed date:07/16/2025 12:59:44 PM Interpretation:trigs 179, hdl 39, chol/hdl 4.77, non-hdl 147 Performing Lab: Notes/Report: Test performed by [facility] [address] [place] [address] , [address], [place] [address] Swapnil Cruz MD, Technical Service Representative CLIA: [id number] Cholesterol 186 <200 mg/dL Triglycerides 179 <150 [...] Results: 111 Units: mg/dL % Change: -22% P-T4 Free (thyroxine) Reviewed date:07/16/2025 12:59:44 PM Interpretation:Normal Performing Lab: Notes/Report: Test performed by [facility] [address] [place], [place] [address] [place] , [place] [address] Swapnil Cruz MD, Technical Service Representative CLIA: [id number] Thyroxine Free (free T4) 1.24 0.86-1.76 ng/dL P-Comprehensive Metabolic Pa susana (CMP) Reviewed date:07/16/2025 12:59:44 PM Interpretation:alk phos 146 Performing Lab: Notes/Report: Test performed by [facility] [address] [place], [place] [address] [place] , [place] [address] Swapnil Cruz MD, Technical Service Representative CLIA: [id number] Sodium 141 135-145 mmol/L Potassium 4.3 3.5-5.3 [...] 0.3 <0.2-1.2 mg/dL A/G Ratio 1.7 1.1-2.5 CBC Venipuncture (in house) Reviewed date:07/15/2025 06:30:25 [...] - 38 platlet 310 100 - 400 Reason For Referral No Information Medications Medication SIG (Take, Route, Frequency, Duration) Notes Start Date End Date Status Vitamin D3 50 MCG (1999) 2 tablet Orally daily; Duration: 30 days 07/24/2025 Active Problems Problem Type SNOMED Code ICD Code Onset Dates Problem Status W/U Status Risk Notes Problem Sinusitis (67921025) Sinusitis (J32.9) Active c onfirmed Problem Vitamin D deficiency (94825557) Vitamin D deficiency (E55.9) Active confirmed Problem Hypertriglyceridemia (687735032) Hypertriglyceridemia (E78.1) Active confirmed Problem Tobacco user (918026154) Smoking addiction (F17.200) Active confirmed Problem Mixed hyperlipidemia (643869881) Mixed hyperlipidemia (E78.2) Active confirmed Problem Abnormal findings on diagnostic imaging of breast (944707156) Other abnormal and inconclusive findings on diagnostic imaging of breast (R92.8) Active confirmed Problem Generalized anxiety disorder (82287966) Anxiety, generalized (F41.1) Active confirmed Problem Tobacco user (928168400) Cigarette nicotine dependence without complication (F17.210) Active confirmed Problem Recurrent major depression (29644077) Episode of recurrent major depressive disorder, unspecified depression episode severity (F33.9) Active confirmed Vital Signs Heart Rate 101 /min 08/21/2025 Blood pressure diastolic 78 mm Hg 08/21/2025 Height 65 in 08/21/2025 Blood pressure systolic 130 mm Hg 08/21/2025 Weight 135.4 lbs 08/21/2025 BMI 22.53 kg/m2 08/21/2025 Encounters Encounter Location Date Provider Diagnosis [facility] [address] [place] [id number] 12/22/2024 Roberto Becerra COVID-19 U07.1 [facility] [address] [place] [id number] 07/15/2025 Roberto Nisland Right-sided chest pa in R07.9 ; Chronic cough R05.3 ; Mixed hyperlipidemia E78.2 ; Vitamin D deficiency E55.9 and BMI 23.0-23.9, adult Z68.23 [facility] [address] [place] [id number] 08/21/2025 Melania Leonard Anxiety, generalized F41.1 ; Abnormal TSH R79.89 ; Vitamin D deficiency E55.9 ; Other fatigue R53.83 and BMI 22.0-22.9, adult Z68.22 [facility] [address] [place] [id number] 09/14/2025 Melania Leonard [facility] [address] [place] [id number] 07/16/2025 Robertokelin Badillo [facility] [address] [place] [id number] 08/04/2025 Melania Leonard Breast cancer screen ing by mammogram Z12.31 and Encounter for screening for lung cancer Z12.2 [facility] [address] [place] [id number] 08/25/2025 Melania Leonard Assessments Encounter Date Diagnosis (ICD Code) Assessment [...] 08/21/2025 BMI 22.0-22.9, adult (ICD-10 - Z68.22) 07/15/2025 BMI 23.0-23.9, adult (ICD-10 - Z68.23) Plan Of Treatment Pending Test Test Name Order Date P-Vitamin B12 08/21/2025 Insurance Providers Payer Name Payer Address Payer Phone Subscriber Number Group Number Insured Name Patient Relationship to Insured Coverage Start Date Coverage End Date [facility] [address] [address] [place] [phone] [id number] Allison Zamarripa Self - patient is the insured Medical (General) History Medical History History ICD Code 20 pack year smoking history as of 2022 Colon Polyps Depression Surgical History Surgery Date(Month/Year) Colonoscopy - Numerous
--- NOTE | 2025-11-09 09:30 | XR_ITS ---
FINAL REPORT CLINICAL HISTORY: low bone mass from hyperthyroidism COMPARISON: None FINDINGS: Using L1-4, the bone mineral density of the spine is 0.889 g/cm2, corresponding to T-score of -1.4. Using the left hip, the bone mineral density of the femoral neck is 0.567 g/cm2, corresponding to a T-score of -2.5. Using the right hip, the bone mineral density of the femoral neck is 0.694 g/cm2, corresponding to a T-score of -1.4. Using the left forearm, the bone mineral density of the mid is 0.519 g/cm?, corresponding to a T-score of -1.6. NOTE: T-score: Standard deviation compared with peak bone mass of young adult mean. *Following the recommendations of the International Society of Bone densitometry, classification of hip BMD is based on the lower of two T-scores; total hip or femoral neck. IMPRESSION: Diminished bone mineral density of the lumbar spine, right hip, and left forearm, corresponding to osteopenia. Diminished mineral density of the left hip, corresponding to osteoporosis. Reviewed, Interpreted and Dictated by Anne Ro MD Transcribed by Renee Dumont Authenticated and [facility]
[2025-11-09 11:08] LABS: Free T4 (Free Thyroxine) 0.66 ng/dl (0.78-2.19)
[2025-11-09 11:20] LABS: Thyroid Stimulating Hormone 2.16 uIU/mL (0.465-4.68)
== END 2025-11-09 23:59 | disposition home or self-care (01) ==
LOC: RAD 09:15
PROVIDERS: PCP Physician Assistant; Visit Provider Student in an Organized Health Care Education/Training Program
DX: M81.0 Age-related osteoporosis without current pathological fracture (principal); E05.90 Thyrotoxicosis, unspecified without thyrotoxic crisis or storm
CPT/HCPCS: 36415; 77081; 84439; 84443